=== PATIENT | male | born 1950 | race Caucasian/White ===

== ENCOUNTER 2018-01-29 11:49 | Inpatient (IN) ==
--- NOTE | 2018-01-29 14:10 | Internal Med History&Physical ---
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 Patient has 0/5 muscle strength in the left upper extremity. Left lower extremity shows 4/5 but patient shows left dorsiflexion deficit with a 3/5 muscle strength. CN 2-12 is intact. Patient was diagnosed with dysphagia upon presentation at [facility]. Patient will be reevaluated by our speech therapy due to lack of records of devious evaluation. Patient's blood pressure has been slightly elevated and we will aggressively maintain systolic less than 160. Qualifiers: CVA mechanism: unspecified Qualified Code(s): I63.9 - Cerebral infarction, unspecified (2) HTN (hypertension) Current visit: No Status: Chronic Patient has a history of hypertension prior to his admission. Patient systolic blood pressure has been elevated greater than 170 on 2 readings since his admission here. We will increase patient's lisinopril to 40 mg daily and will treat his blood pressure when necessary with clonidine. Qualifiers: Hypertension type: essential hypertension Qualified Code(s): I10 - Essential (primary) hypertension Internal Medicine - H&P: HPI Chief complaint: CVA with left hemiparesis Admitted From: Hospital to Hospital Transfer Plans for Post Hospital Care: Home History of present illness: Mr. Dover is a 67 year old male who was admitted from a [facility] where he was treated for an acute ischemic CVA resulting in left hemiparesis. MRI of the brain was performed which shows a right jose rafael infarct. Patient's recovery at [facility] was uneventful and patient was transferred to this facility for further rehabilitation due to his deconditioning and his logical deficits. Patient had a history of hypertension and hyperlipidemia prior to admission. On arrival patient was noted to have left upper extremity hemiplegia with muscle strength 0/5 and left lower extremity with a muscle strength of 4/5. Patient was noted to have left foot drop with a dorsiflexion of 3/5. Patient was diagnosed with dysphagia upon admission to [facility] but was evaluated by speech therapy at that time with documentation showing this problem has been resolved and patient was started on a regular diet. Patient also has significant history of tobacco abuse. Patient currently denies any discomforts or shortness of breath. Patient does endorse constipation stating that he has not had a bowel movement in approximately 4-5 days. Past Med Surg Social Fam HX - Past Medical History Medical history: CVA, hyperlipidemia, hypertension Psychiatric history: no psych history - Past Surgical History Surgical History: appendectomy Additional surgical history: nerve sx in stomach - Social History Smoking Status: Current every day smoker Smokeless Tobacco Status: No Alcohol use: rarely Drug use: none Internal Medicine - H&P: Meds Cholecalciferol (D-3) [Vitamin D] 1,000 unit PO DAILY 01/26/18 [History] [place]-3/Dha/Epa/Fish Oil [Fish Oil 1,000 mg Softgel] 1 cap PO DAILY 01/26/18 [ History] Simvastatin [Zocor] 40 mg PO HS 01/26/18 [History] Ubidecarenone [Coq10] 50 mg PO DAILY 01/26/18 [History] Clopidogrel [Plavix] 75 mg PO DAILY tablet 01/29/18 [Rx] Hydrochlorothiazide [Microzide] 12.5 mg PO DAILY #30 capsule 01/29/18 [Rx] Lisinopril [Zestril] 40 mg PO QDPC #30 tablet 01/29/18 [Rx] 3 Allergy/AdvReac Type Severity Reaction Status Date / Time No Known Allergies Allergy Verified 01/26/18 13:48 All Systems PM: A 10-system review of systems was performed and is negative for pertinent findings except as documented above in the HPI. - Constitutional Constitutional: no chills, no fever(s), no night sweats - EENT Eyes: no change in vision, no discharge, no pain, no photophobia Ears: no ear discharge, no ear pain, no tinnitus Nose, mouth and throat: no dysphagia, no nasal discharge, no neck pain, no sore throat - Cardiovascular Cardiovascular ROS IM: as per HPI, no chest pain, no diaphoresis, no dyspnea, no lightheadedness, no palpitations, no syncope - Respiratory Respiratory: as per HPI, no cough, no dyspnea, no wheezing, no excessive phlegm production - Gastrointestinal Gastrointestinal: as per HPI, no abdominal pain, no diarrhea, no hematemesis, no hematochezia, no melena, no nausea, no vomiting - Musculoskeletal Musculoskeletal ROS IM: as per HPI, no numbness, no tingling - Integumentary Integumentary IM: no rash, no unusual bruising - Neurological Neurological ROS: as per HPI, no confusion, no convulsions, no focal weakness, no numbness, no tingling, no tremor(s) - Hematologic/Lymphatic Hematologic/Lymphatic: no easy bruising - Constitutional Vitals: Temp Pulse Resp BP Pulse Ox 97.7 F 64 16 176/79 98 01/29/18 12:07 01/29/18 12:07 01/29/18 12:07 01/29/18 12:07 01/29/18 12:07 General appearance: Present: A&O X 3, no acute distress - Head Head exam: Present: atraumatic, normocephalic - Eye Eye exam: Present: PERRL, conjuntiva pink, sclera anicteric Pupils: Present: PERRL - Neck Neck exam general surgery: Present: supple, trachea midline. Absent: lymphadenopathy - Respiratory Respiratory exam: Present: CTAB. Absent: accessory muscle use, rales, rhonchi, wheezes - Cardiovascular Cardiovascular exam: Present: RRR, +S1, +S2. Absent: diastolic murmur, gallop, rubs, systolic murmur - GI/Abdominal GI/Abdominal exam: Present: normal bowel sounds, soft, no peritoneal signs. Absent: distended, tenderness - Extremities Exam Extremities exam: Present: warm, radial pulses palpable and symmetrical. Absent : calf tenderness, cyanotic, pedal edema - Neurological Exam Neurological exam: Present: CN II-XII intact, oriented X3. Absent: pronater drift, facial droop, speech deficit Additional comments: Patient has LUE hemiplegia with MS 0/5. LLE with MS 4/5 , dorsiflexion at 3/5. RE with MS 5/5. No facial droop and tongue is midline. Speech is clear - Skin Skin exam: Present: dry, intact
[2018-01-29] MEDS ORDERED: Lisinopril 20 MG TABLET PO STA (14:24)
[2018-01-29] MEDS: cloNIDine HCl 0.1 MG TABLET PO PRN ×3 (14:29→23:59)
[2018-01-29] MEDS ORDERED: MOM Conc 10 ML UD.LIQ PO PRN (15:03)
[2018-01-29] MEDS ORDERED: hydrALAZINE 25 MG TABLET PO PRN (20:17)
[2018-01-29] MEDS: Sennosides 8.6 MG TABLET PO SCH (20:27)
[2018-01-29] MEDS: Acetaminophen 325 MG TABLET PO PRN (20:28)
[2018-01-30] MEDS: *HR* Enoxaparin 40 MG/0.4 ML SYRINGE SQ SCH (05:39)
[2018-01-30 06:28] LABS: Basophils # 0.1 K/mcL (0.0-0.2); Basophils % 1.1 %; Eosinophils # 0.4 K/mcL (0.0-0.6); Eosinophils % 5.2 %; Hemoglobin 11.6 g/dL (12.9-16.9); INR 1.1; Immature Granulocytes % 0.3 % (0-4); Lymphocytes # 3.4 K/mcL (0.6-4.6); Lymphocytes % 42.7 %; Mean Corpuscular HGB Conc 35.2 g/dL (31.6-35.5); Mean Corpuscular Hemoglobin 33.4 pg (28.0-33.3); Mean Corpuscular Volume 95.1 fL (83.0-100.0); Mean Platelet Volume 10.2 fL (9.4-12.4); Monocytes # 0.5 K/mcL (0.0-1.3); Monocytes % 6.1 %; Neutrophils # 3.5 K/mcL (1.6-8.9); Platelet Count 186 K/mcL (140-400); Prothrombin Time 12.2 Seconds (9.4-12.1); Red Blood Count 3.47 M/mcL (4.19-5.50); Red Cell Distribution Width 14.3 % (11.5-14.5); Segmented Neutrophils % 44.6 %
[2018-01-30 06:30] LABS: Activated Partial Thrombo Time 30.8 Seconds (26.0-36.0)
[2018-01-30 06:43] LABS: BUN/Creatinine Ratio 15 (6-26); Blood Urea Nitrogen 17 mg/dL (8-23); Calcium 9.1 mg/dL (8.6-10.3); Carbon Dioxide 26 mEq/L (23-29); Chloride 101 mEq/L (98-107); Glucose 111 mg/dL (70-105); Osmolality,Calculated 276 (280-300); Potassium 3.4 mEq/L (3.5-5.1); Sodium 132 mEq/L (136-145); eGFR For Non-African Americans > 60 (> 60)
[2018-01-30 06:53] LABS: Thyroid Stimulating Hormone 4.396 mcIU/mL (0.340-5.600)
[2018-01-30] MEDS: Sennosides 8.6 MG TABLET PO SCH ×2 (08:30→21:13)
[2018-01-30] MEDS: Cholecalciferol (D-3) 1,000 UNIT TABLET PO SCH (08:30)
[2018-01-30] MEDS: Lisinopril 20 MG TABLET PO SCH (08:30)
--- NOTE | 2018-01-30 12:50 | Internal Med Progress Note ---
Date of Encounter: 01/30/18 Time of Encounter: 12:10 - Assessment and plan (1) Stroke Current Visit: No Status: Acute Assessment and plan: Right pontine infarction as noted previously. He will continue with therapies. He is doing well, so far. 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 Qualifiers: CVA mechanism: unspecified Qualified Code(s): I63.9 - Cerebral infarction, unspecified (2) HTN (hypertension) Current Visit: No Status: Chronic Assessment and plan: Patient's blood pressure seems to be doing transitionally better. Will follow. Qualifiers: Hypertension type: essential hypertension Qualified Code(s): I10 - Essential (primary) hypertension (3) HLD (hyperlipidemia) Current Visit: No Status: Chronic Assessment and plan: Clinically stable. We will continue home regimen and follow. Qualifiers: Hyperlipidemia type: unspecified Qualified Code(s): E78.5 - Hyperlipidemia , unspecified - Subjective Interval history: Patient still has moved his bowels. We discussed use of laxative, if he does not go. He feels that his stool softeners enough and I explained to him that that would not get his bowels moving. He agrees to try. Recreational therapy notes that patient cries and laughs inappropriately and quickly during conversation. I reviewed this with patient and he admits to both and states that he is not able to control this. This may be PBA. Here, Nuedexta is non-formulary. We will thus begin Celexa. Patient agrees to try this and I told him it may take a week or 2 before this "kicks in." Patient has no other complaints and notes no change in his physical abilities. Patient has no complaint of chest discomfort, dyspnea, orthopnea, palpitations, nausea or vomiting, constipation or diarrhea, other changes in bowel habits, difficulty with urination, rash or itching, or other new complaints, except as mentioned above. Review of systems is otherwise negative. I discussed management of her care with nursing staff. - Constitutional Vitals: Temp Pulse Resp BP Pulse Ox 97.7 F 78 16 155/78 98 01/30/18 11:13 01/30/18 11:13 01/30/18 11:13 01/30/18 11:13 01/30/18 11:13 General appearance: Present: no acute distress Exam: Examination: (Except as mentioned above): General: In no apparent distress. Alert and oriented 3. Nondiaphoretic. Head: Atraumatic and normocephalic. Respiratory: No use of accessory muscles. Lungs are clear throughout. Normal airflow. Cardiovascular: Regular rate and rhythm without murmur appreciated. Abdomen: Bowel sounds are normal. No hepatosplenomegaly mass or tenderness appreciated. Extremities: No cyanosis clubbing or edema. He is still weak as before on the left side. Minimal left facial droop. Skin: Warm and non-diaphoretic with no new lesions noted. Internal Medicine: Result - Labs CBC & Chem 7: 01/30/18 05:30 01/30/18 05:30 Labs: Short CBC 01/30/18 Range/Units 05:30 WBC 7.9 (4.3-11.1) K/mcL Hgb 11.6 L (12.9-16.9) g/dL Hct 33.0 L (37.5-50.1) % Plt Count 186 (140-400) K/mcL Neutrophils # 3.5 (1.6-8.9) K/mcL BMP 01/30/18 05:30 Sodium 132 L Potassium 3.4 L Chloride 101 Carbon Dioxide 26 BUN 17 Creatinine 1.10 Glucose 111 H Calcium 9.1 - ABG Interpretation ABG results: PT/INR, D-dimer PT 12.2 Seconds (9.4-12.1) H 01/30/18 05:30 Consult Discharge Plan - Plan Referrals: Kenya Francis CNP [Primary Care Provider] - Venancio Mcclendon MD [Family Provider] -
[2018-01-30] MEDS: cloNIDine HCl 0.1 MG TABLET PO PRN (21:13)
[2018-01-31] MEDS: *HR* Enoxaparin 40 MG/0.4 ML SYRINGE SQ SCH (06:05)
[2018-01-31] MEDS: Cholecalciferol (D-3) 1,000 UNIT TABLET PO SCH (08:13)
[2018-01-31] MEDS: Sennosides 8.6 MG TABLET PO SCH ×2 (08:13→20:19)
[2018-01-31] MEDS: Lisinopril 20 MG TABLET PO SCH (08:13)
--- NOTE | 2018-01-31 12:24 | Internal Med Progress Note ---
Date of Encounter: 01/31/18 Time of Encounter: 12:21 - Assessment and plan (1) Stroke Current Visit: Yes Status: Acute Assessment and plan: No acute neurological changes noted on exam. Patient continues to show left arm is flaccid and moderate paresis to the left lower extremity. Patient states that therapy has been going well and will continue with therapy. Will continue with current plan of care and medications Qualifiers: CVA mechanism: unspecified Qualified Code(s): I63.9 - Cerebral infarction, unspecified (2) HTN (hypertension) Current Visit: No Status: Chronic Assessment and plan: Patient's blood pressure continues to have occasional elevated systolic pressures. We will continue with when necessary clonidine and continue to monitor. Qualifiers: Hypertension type: essential hypertension Qualified Code(s): I10 - Essential (primary) hypertension - Time Spent With Patient less than 15 minutes - Subjective Interval history: Patient appears relaxed and currently denies any discomforts or shortness of breath. Patient denies any acute neurological changes. Patient states that he no longer is constipated and has had a regular BMs. - Constitutional Vitals: Temp Pulse Resp BP Pulse Ox 98.1 F 60 16 135/64 99 01/31/18 07:11 01/31/18 07:11 01/31/18 07:11 01/31/18 07:11 01/31/18 07:11 General appearance: Present: A&O X 3, no acute distress - Head Head exam: Present: atraumatic, normocephalic - Eye Eye exam: Present: PERRL, conjuntiva pink, sclera anicteric Pupils: Present: PERRL - Neck Neck exam general surgery: Present: supple, trachea midline. Absent: lymphadenopathy - Respiratory Respiratory exam: Present: CTAB. Absent: accessory muscle use, rales, rhonchi, wheezes - Cardiovascular Cardiovascular exam: Present: RRR, +S1, +S2. Absent: diastolic murmur, gallop, rubs, systolic murmur - GI/Abdominal GI/Abdominal exam: Present: normal bowel sounds, soft, no peritoneal signs. Absent: distended, tenderness - Extremities Exam Extremities exam: Present: warm, radial pulses palpable and symmetrical. Absent : calf tenderness, cyanotic, pedal edema - Neurological Exam Neurological exam: Present: CN II-XII intact, oriented X3. Absent: pronater drift, facial droop, speech deficit Additional comments: Patient continues to have LUE that is flaccid with MS 0/5 and LLE 4/5, but his left dorsiflexion is 3/5. RE is 5/5 MS. - Skin Skin exam: Present: dry, intact Internal Medicine: Result - Labs CBC & Chem 7: 01/30/18 05:30 01/30/18 05:30 - ABG Interpretation ABG results: PT/INR, D-dimer PT 12.2 Seconds (9.4-12.1) H 01/30/18 05:30 Consult Discharge Plan - Plan Referrals: Venancio Mcclendon MD [Family Provider] - Kenya Francis CNP [Primary Care Provider] -
[2018-01-31] MEDS: cloNIDine HCl 0.1 MG TABLET PO PRN (19:00)
[2018-02-01] MEDS: *HR* Enoxaparin 40 MG/0.4 ML SYRINGE SQ SCH (05:40)
[2018-02-01 05:48] LABS: Hematocrit 34.8 % (37.5-50.1); Hemoglobin 12.1 g/dL (12.9-16.9); Mean Corpuscular HGB Conc 34.8 g/dL (31.6-35.5); Mean Corpuscular Hemoglobin 33.3 pg (28.0-33.3); Mean Corpuscular Volume 95.9 fL (83.0-100.0); Platelet Count 186 K/mcL (140-400); Red Blood Count 3.63 M/mcL (4.19-5.50); Red Cell Distribution Width 14.4 % (11.5-14.5)
[2018-02-01 06:07] LABS: BUN/Creatinine Ratio 17 (6-26); Blood Urea Nitrogen 18 mg/dL (8-23); Calcium 9.1 mg/dL (8.6-10.3); Carbon Dioxide 28 mEq/L (23-29); Chloride 98 mEq/L (98-107); Glucose 93 mg/dL (70-105); Magnesium 2.1 mg/dL (1.6-2.6); Osmolality,Calculated 274 (280-300); Potassium 4.6 mEq/L (3.5-5.1); Sodium 131 mEq/L (136-145); eGFR For Non-African Americans > 60 (> 60)
[2018-02-01] MEDS: Lisinopril 20 MG TABLET PO SCH (08:15)
[2018-02-01] MEDS: Magnesium Oxide 400 MG TABLET PO SCH (08:16)
[2018-02-01] MEDS: Sennosides 8.6 MG TABLET PO SCH ×2 (08:16→20:27)
[2018-02-01] MEDS: Cholecalciferol (D-3) 1,000 UNIT TABLET PO SCH (08:16)
--- NOTE | 2018-02-01 11:37 | Internal Med Progress Note ---
Date of Encounter: 02/01/18 Time of Encounter: 11:34 - Assessment and plan (1) Stroke Current Visit: Yes Status: Acute Assessment and plan: Patient is a ischemic CVA of the jose rafael. Patient has showed improvement of his exam since yesterday with him now having gross motor movement of the left upper extremity which is at 3/5 MS and his left lower extremity remains at 4/5 MS. Right extremities remain at 5/5 MS. Patient states that therapy has been going well and will continue with therapy. Will continue with current plan of care and medications Qualifiers: CVA mechanism: unspecified Qualified Code(s): I63.9 - Cerebral infarction, unspecified (2) HTN (hypertension) Current Visit: No Status: Chronic Assessment and plan: Patient's blood pressure continues to have occasional elevated systolic pressures. We will continue with when necessary clonidine and continue to monitor. Qualifiers: Hypertension type: essential hypertension Qualified Code(s): I10 - Essential (primary) hypertension - Time Spent With Patient less than 15 minutes - Subjective Interval history: Patient appears relaxed and currently denies any discomforts or shortness of breath. Patient states that he has noted some gross motor movement on his left arm since yesterday's exam. Patient states that he no longer is constipated and has had a regular BMs. - Constitutional Vitals: Temp Pulse Resp BP Pulse Ox 98.5 F 60 15 158/73 99 02/01/18 07:00 02/01/18 07:00 02/01/18 07:00 02/01/18 07:00 02/01/18 07:00 General appearance: Present: A&O X 3, no acute distress - Head Head exam: Present: atraumatic, normocephalic - Eye Eye exam: Present: PERRL, conjuntiva pink, sclera anicteric Pupils: Present: PERRL - Neck Neck exam general surgery: Present: supple, trachea midline. Absent: lymphadenopathy - Respiratory Respiratory exam: Present: CTAB. Absent: accessory muscle use, rales, rhonchi, wheezes - Cardiovascular Cardiovascular exam: Present: RRR, +S1, +S2. Absent: diastolic murmur, gallop, rubs, systolic murmur - GI/Abdominal GI/Abdominal exam: Present: normal bowel sounds, soft, no peritoneal signs. Absent: distended, tenderness - Extremities Exam Extremities exam: Present: warm, radial pulses palpable and symmetrical. Absent : calf tenderness, cyanotic, pedal edema - Neurological Exam Neurological exam: Present: CN II-XII intact, oriented X3. Absent: pronater drift, facial droop, speech deficit Additional comments: Left hemiparesis with LUE at 3/5 and LLE 4/5. RE 5/5. No other focal deficits noted on exam - Skin Skin exam: Present: dry, intact Internal Medicine: Result - Labs CBC & Chem 7: 02/01/18 05:15 02/01/18 05:15 Labs: Short CBC 02/01/18 Range/Units 05:15 WBC 7.8 (4.3-11.1) K/mcL Hgb 12.1 L (12.9-16.9) g/dL Hct 34.8 L (37.5-50.1) % Plt Count 186 (140-400) K/mcL BMP 02/01/18 05:15 Sodium 131 L Potassium 4.6 Chloride 98 Carbon Dioxide 28 BUN 18 Creatinine 1.03 Glucose 93 Calcium 9.1 - ABG Interpretation ABG results: PT/INR, D-dimer PT 12.2 Seconds (9.4-12.1) H 01/30/18 05:30 Consult Discharge Plan - Plan Referrals: Venancio Mcclendon MD [Family Provider] - Kenya Francis CNP [Primary Care Provider] -
[2018-02-01] MEDS: cloNIDine HCl 0.1 MG TABLET PO PRN (20:28)
[2018-02-02] MEDS: *HR* Enoxaparin 40 MG/0.4 ML SYRINGE SQ SCH (05:26)
[2018-02-02] MEDS: Cholecalciferol (D-3) 1,000 UNIT TABLET PO SCH (09:04)
[2018-02-02] MEDS: Sennosides 8.6 MG TABLET PO SCH ×2 (09:04→19:48)
[2018-02-02] MEDS: Lisinopril 20 MG TABLET PO SCH (09:04)
[2018-02-02] MEDS: Magnesium Oxide 400 MG TABLET PO SCH (09:04)
--- NOTE | 2018-02-02 12:18 | Internal Med Progress Note ---
Date of Encounter: 02/02/18 Time of Encounter: 12:16 - Assessment and plan (1) Stroke Current Visit: Yes Status: Acute Assessment and plan: No new neurological deficits at this time. Continue PT and OT. Will monitor progress. Follow up with neurologist as scheduled. Qualifiers: CVA mechanism: unspecified Qualified Code(s): I63.9 - Cerebral infarction, unspecified (2) HTN (hypertension) Current Visit: No Status: Chronic Assessment and plan: Controlled with current medication. Monitor blood pressure. Qualifiers: Hypertension type: essential hypertension Qualified Code(s): I10 - Essential (primary) hypertension - Time Spent With Patient less than 15 minutes - Subjective Interval history: Per dissipating well with therapy. Denies any complaints at this time. No new neurological deficits. Denies fever, chills, nausea vomiting or diarrhea. Maintaining appetite and hydration. States bowels last moved yesterday. - Constitutional Vitals: Temp Pulse Resp BP Pulse Ox 99.2 F 57 16 162/67 98 02/02/18 07:14 02/02/18 07:14 02/02/18 07:14 02/02/18 07:14 02/02/18 07:14 General appearance: Present: cooperative, A&O X 3, pleasant, no acute distress, answers questions appropriately - Head Head exam: Present: atraumatic, normocephalic - Eye Eye exam: Present: PERRL, conjuntiva pink, sclera anicteric Pupils: Present: PERRL - Neck Neck exam general surgery: Present: supple, trachea midline. Absent: lymphadenopathy - Respiratory Respiratory exam: Present: CTAB. Absent: accessory muscle use, rales, rhonchi, wheezes - Cardiovascular Cardiovascular exam: Present: RRR, +S1, +S2. Absent: diastolic murmur, gallop, rubs, systolic murmur - GI/Abdominal GI/Abdominal exam: Present: normal bowel sounds, soft, no peritoneal signs. Absent: distended, tenderness - Extremities Exam Extremities exam: Present: warm, radial pulses palpable and symmetrical. Absent : calf tenderness, cyanotic, pedal edema Additional comments: Left upper extremity strength 3\5, left lower extremity strength 4\5 - Neurological Exam Neurological exam: Present: CN II-XII intact, oriented X3, no focal deficits. Absent: pronater drift, facial droop, speech deficit - Skin Skin exam: Present: dry, intact Internal Medicine: Result - Labs CBC & Chem 7: 02/01/18 05:15 02/01/18 05:15 - ABG Interpretation ABG results: PT/INR, D-dimer PT 12.2 Seconds (9.4-12.1) H 01/30/18 05:30 Consult Discharge Plan - Plan Referrals: Venancio Mcclendon MD [Family Provider] - Kenya Francis CNP [Primary Care Provider] -
[2018-02-03] MEDS: *HR* Enoxaparin 40 MG/0.4 ML SYRINGE SQ SCH (05:15)
[2018-02-03] MEDS: Cholecalciferol (D-3) 1,000 UNIT TABLET PO SCH (08:01)
[2018-02-03] MEDS: cloNIDine HCl 0.1 MG TABLET PO PRN (08:01)
[2018-02-03] MEDS: Magnesium Oxide 400 MG TABLET PO SCH (08:01)
[2018-02-03] MEDS: Lisinopril 20 MG TABLET PO SCH (08:01)
[2018-02-03] MEDS: Sennosides 8.6 MG TABLET PO SCH ×2 (08:01→20:56)
--- NOTE | 2018-02-03 10:09 | Psychological Evaluation ---
Date of Encounter: 02/03/18 Time of Encounter: 09:30 History of Present Illness History of present illness: Mr. Dover is a 67 year old male who was admitted from an [facility] where he was treated for an acute ischemic CVA resulting in left hemiparesis. MRI of the brain was performed which shows a right jose rafael infarct. Patient's recovery at [facility] was uneventful and patient was transferred to this facility for further rehabilitation due to his deconditioning and his logical deficits. Patient had a history of hypertension and hyperlipidemia prior to admission. On arrival patient was noted to have left upper extremity hemiplegia with muscle strength 0/5 and left lower extremity with a muscle strength of 4/5. Patient was noted to have left foot drop with a dorsiflexion of 3/5. Patient was diagnosed with dysphagia upon admission to [facility] but was evaluated by speech therapy at that time with documentation showing this problem has been resolved and patient was started on a regular diet. Patient also has significant history of tobacco abuse. Past Medical History - Psychiatric History Psychiatric history: Reports: no psych history Home Medications and Allergies Cholecalciferol (D-3) [Vitamin D] 1,000 unit PO DAILY 01/26/18 [History] [place]-3/Dha/Epa/Fish Oil [Fish Oil 1,000 mg Softgel] 1 cap PO DAILY 01/26/18 [ History] Simvastatin [Zocor] 40 mg PO HS 01/26/18 [History] Ubidecarenone [Coq10] 50 mg PO DAILY 01/26/18 [History] Clopidogrel [Plavix] 75 mg PO DAILY tablet 01/29/18 [Rx] Hydrochlorothiazide [Microzide] 12.5 mg PO DAILY #30 capsule 01/29/18 [Rx] Lisinopril [Zestril] 40 mg PO QDPC #30 tablet 01/29/18 [Rx] 3 Allergy/AdvReac Type Severity Reaction Status Date / Time No Known Allergies Allergy Verified 01/26/18 13:48 Social History - Social History Social History: Pt. 48 years and has a son and grandson. Family supportive. Born and raised in [place]. High school diploma. Moved to [place] late 80's/early 90's for work. 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 Left work due to disability - "issues with balance, dizziness, and involuntary eye movements" stated better now because learned to compensate. 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 - Tobacco Use Smoking Status: Former smoker - Alcohol Use Alcohol Use: occasionally - Drug Use Drug Use: none Cognitive/Emotional Assessment - Cognitive Ability Abstract Thinking Ability: No Deficits Noted Attention Span Ability: Capable of Focused Attention, Capable of Sustained Attention Language Function Ability: No Deficits Noted Level of Alertness: Alert Orientation: Person, Place, Time, Name, Age, Date of , Day of Month, Day of Week Ability to Follow Directions: Good Speech Pattern: Normal rate Thought Process: Intact, Logical Calculations: Able to add simple combinations Additional Findings: Pt able to recall 3/3 words immediately and after 5 min; 6 digits forward and 4 digits backward; knew pres, previous pres and gov; unable to subtract 14.45 from 20. - Emotional Status Mood Description: Euthymic/stable Affect Description: Euthymic/stable Coping Ability: Verbalizes positive coping skills Additional Findings: States mood as "OK". No history of psychological issues; denies SI/HI; sleep on and off. Assessment & Plan - Diagnosis (1) Adjustment disorder with depressed mood - Prognosis Prognosis: Good - Treatment Plan Treatment Plan/Recommendations: No outpatient counseling warranted mood has stabilized. Feels hopeful with current progress in-rehab.and support of family. Procedures - Intervention Interventions: Supportive Counseling - Modality Modality: Psychotherapy 30 minutes - Participants Therapy Participant: Patient - Session Time Session Start Time: 09:30 Session Stop Time: 10:00
--- NOTE | 2018-02-03 11:27 | Internal Med Progress Note ---
Date of Encounter: 02/03/18 Time of Encounter: 11:25 - Assessment and plan (1) Stroke Current Visit: Yes Status: Acute Assessment and plan: No new neurological deficits at this time. Continue PT and OT. Will monitor progress. Follow up with neurologist as scheduled. Qualifiers: CVA mechanism: unspecified Qualified Code(s): I63.9 - Cerebral infarction, unspecified (2) HTN (hypertension) Current Visit: No Status: Chronic Assessment and plan: Controlled with current medication. Monitor blood pressure. Qualifiers: Hypertension type: essential hypertension Qualified Code(s): I10 - Essential (primary) hypertension - Time Spent With Patient less than 15 minutes - Subjective Interval history: participating well with therapy. ambulating with kedra walker in hallway with therapy. Denies any complaints at this time. No new neurological deficits. Denies fever, chills, nausea vomiting or diarrhea. Maintaining appetite and hydration. States bowels last moved yesterday. - Constitutional Vitals: Temp Pulse Resp BP Pulse Ox 98.1 F 67 16 115/75 97 02/03/18 07:21 02/03/18 07:21 02/03/18 07:21 02/03/18 10:02 02/03/18 07:21 General appearance: Present: cooperative, A&O X 3, pleasant, no acute distress, answers questions appropriately - Head Head exam: Present: atraumatic, normocephalic - Eye Eye exam: Present: PERRL, conjuntiva pink, sclera anicteric Pupils: Present: PERRL - Neck Neck exam general surgery: Present: supple, trachea midline. Absent: lymphadenopathy - Respiratory Respiratory exam: Present: CTAB. Absent: accessory muscle use, rales, rhonchi, wheezes - Cardiovascular Cardiovascular exam: Present: RRR, +S1, +S2. Absent: diastolic murmur, gallop, rubs, systolic murmur - GI/Abdominal GI/Abdominal exam: Present: normal bowel sounds, soft, no peritoneal signs. Absent: distended, tenderness - Extremities Exam Extremities exam: Present: warm, radial pulses palpable and symmetrical. Absent : calf tenderness, cyanotic, pedal edema Additional comments: LUE and LLE strength 4/5 - Neurological Exam Neurological exam: Present: CN II-XII intact, oriented X3, no focal deficits. Absent: pronater drift, facial droop, speech deficit - Skin Skin exam: Present: dry, intact Internal Medicine: Result - Labs CBC & Chem 7: 02/01/18 05:15 02/01/18 05:15 - ABG Interpretation ABG results: PT/INR, D-dimer PT 12.2 Seconds (9.4-12.1) H 01/30/18 05:30 Consult Discharge Plan - Plan Referrals: Venancio Mcclendon MD [Family Provider] - Kenya Francis CNP [Primary Care Provider] -
[2018-02-04] MEDS: *HR* Enoxaparin 40 MG/0.4 ML SYRINGE SQ SCH (05:29)
[2018-02-04] MEDS: Lisinopril 20 MG TABLET PO SCH (08:25)
[2018-02-04] MEDS: Magnesium Oxide 400 MG TABLET PO SCH (08:25)
[2018-02-04] MEDS: Cholecalciferol (D-3) 1,000 UNIT TABLET PO SCH (08:25)
[2018-02-04] MEDS: Sennosides 8.6 MG TABLET PO SCH ×2 (08:25→22:14)
--- NOTE | 2018-02-04 11:51 | Internal Med Progress Note ---
Date of Encounter: 02/04/18 Time of Encounter: 11:48 - Assessment and plan (1) Stroke Current Visit: Yes Status: Acute Assessment and plan: No new neurological deficits at this time. Continue PT and OT. Will monitor progress. Follow up with neurologist as scheduled. Qualifiers: CVA mechanism: unspecified Qualified Code(s): I63.9 - Cerebral infarction, unspecified (2) HTN (hypertension) Current Visit: No Status: Chronic Assessment and plan: Controlled with current medication. Monitor blood pressure. Qualifiers: Hypertension type: essential hypertension Qualified Code(s): I10 - Essential (primary) hypertension - Time Spent With Patient less than 15 minutes - Subjective Interval history: participating well with therapy. ambulating with kedar walker in hallway with therapy. Denies any complaints at this time. No new neurological deficits. Denies fever, chills, nausea vomiting or diarrhea. Maintaining appetite and hydration. States bowels last moved this am. states he slept well. - Constitutional Vitals: Temp Pulse Resp BP Pulse Ox 98.7 F 58 18 171/73 97 02/04/18 07:21 02/04/18 07:21 02/04/18 07:21 02/04/18 07:21 02/04/18 07:21 General appearance: Present: cooperative, A&O X 3, pleasant, no acute distress, answers questions appropriately - Head Head exam: Present: atraumatic, normocephalic - Eye Eye exam: Present: PERRL, conjuntiva pink, sclera anicteric Pupils: Present: PERRL - Neck Neck exam general surgery: Present: supple, trachea midline. Absent: lymphadenopathy - Respiratory Respiratory exam: Present: CTAB. Absent: accessory muscle use, rales, rhonchi, wheezes - Cardiovascular Cardiovascular exam: Present: RRR, +S1, +S2. Absent: diastolic murmur, gallop, rubs, systolic murmur - GI/Abdominal GI/Abdominal exam: Present: normal bowel sounds, soft, no peritoneal signs. Absent: distended, tenderness - Extremities Exam Extremities exam: Present: warm, radial pulses palpable and symmetrical. Absent : calf tenderness, cyanotic, pedal edema Additional comments: strength LUE 3/5, LLE 4/5 - Neurological Exam Neurological exam: Present: CN II-XII intact, oriented X3, no focal deficits. Absent: pronater drift, facial droop, speech deficit - Skin Skin exam: Present: dry, intact Internal Medicine: Result - Labs CBC & Chem 7: 02/01/18 05:15 02/01/18 05:15 - ABG Interpretation ABG results: PT/INR, D-dimer PT 12.2 Seconds (9.4-12.1) H 01/30/18 05:30 Consult Discharge Plan - Plan Referrals: Venancio Mcclendon MD [Family Provider] - Kenya Francis CNP [Primary Care Provider] -
[2018-02-04] MEDS: cloNIDine HCl 0.1 MG TABLET PO PRN ×2 (19:10→22:13)
[2018-02-05] MEDS ORDERED: amLODIPine 5 MG TABLET PO STA (00:27)
[2018-02-05] MEDS: *HR* Enoxaparin 40 MG/0.4 ML SYRINGE SQ SCH (06:31)
[2018-02-05] MEDS: Sennosides 8.6 MG TABLET PO SCH ×2 (09:44→20:48)
[2018-02-05] MEDS: Lisinopril 20 MG TABLET PO SCH (09:44)
[2018-02-05] MEDS: Cholecalciferol (D-3) 1,000 UNIT TABLET PO SCH (09:44)
[2018-02-05] MEDS: Magnesium Oxide 400 MG TABLET PO SCH (09:44)
[2018-02-05] MEDS: amLODIPine 5 MG TABLET PO SCH (09:45)
--- NOTE | 2018-02-05 11:37 | Internal Med Progress Note ---
Date of Encounter: 02/05/18 Time of Encounter: 11:33 - Assessment and plan (1) Stroke Current Visit: Yes Status: Acute Assessment and plan: Patient is a ischemic CVA of the jose rafael. Patient has showed improvement of his exam since last week for his gross motor movement of the left left extremities at 4/5 MS. Right extremities remain at 5/5 MS. Patient states that therapy has been going well and will continue with therapy. Will continue with current plan of care and medications Qualifiers: CVA mechanism: unspecified Qualified Code(s): I63.9 - Cerebral infarction, unspecified (2) HTN (hypertension) Current Visit: No Status: Chronic Assessment and plan: Patient's blood pressure continues to have occasional elevated systolic pressures. We will continue with when necessary clonidine and continue to monitor. Qualifiers: Hypertension type: essential hypertension Qualified Code(s): I10 - Essential (primary) hypertension - Time Spent With Patient less than 15 minutes - Subjective Interval history: Patient appears relaxed and currently denies any discomforts or shortness of breath. Patient states that he continues to regain gross motor movement on his left arm over the past week. Patient states that he no longer is constipated and has had a regular BMs. - Constitutional Vitals: Temp Pulse Resp BP Pulse Ox 97.5 F L 57 16 119/60 97 02/05/18 08:39 02/05/18 08:39 02/05/18 08:39 02/05/18 08:39 02/05/18 08:39 General appearance: Present: cooperative, A&O X 3, pleasant, no acute distress, answers questions appropriately - Head Head exam: Present: atraumatic, normocephalic - Eye Eye exam: Present: PERRL, conjuntiva pink, sclera anicteric Pupils: Present: PERRL - Neck Neck exam general surgery: Present: supple, trachea midline. Absent: lymphadenopathy - Respiratory Respiratory exam: Present: CTAB. Absent: accessory muscle use, rales, rhonchi, wheezes - Cardiovascular Cardiovascular exam: Present: RRR, +S1, +S2. Absent: diastolic murmur, gallop, rubs, systolic murmur - GI/Abdominal GI/Abdominal exam: Present: normal bowel sounds, soft, no peritoneal signs. Absent: distended, tenderness - Extremities Exam Extremities exam: Present: warm, radial pulses palpable and symmetrical. Absent : calf tenderness, cyanotic, pedal edema - Neurological Exam Neurological exam: Present: CN II-XII intact, oriented X3. Absent: pronater drift, facial droop, speech deficit Additional comments: Patient continues to show left hemiparesis with LE at 4/5, to include 4/5 dorsiflexion. RE 5/5. No decreased sensation. - Skin Skin exam: Present: dry, intact Internal Medicine: Result - Labs CBC & Chem 7: 02/01/18 05:15 02/01/18 05:15 - ABG Interpretation ABG results: PT/INR, D-dimer PT 12.2 Seconds (9.4-12.1) H 01/30/18 05:30 Consult Discharge Plan - Plan Referrals: Venancio Mcclendon MD [Family Provider] - Kenya Francis CNP [Primary Care Provider] -
[2018-02-05] MEDS: Acetaminophen 325 MG TABLET PO PRN (20:48)
[2018-02-06] MEDS: *HR* Enoxaparin 40 MG/0.4 ML SYRINGE SQ SCH (05:42)
[2018-02-06 06:02] LABS: Hematocrit 32.6 % (37.5-50.1); Hemoglobin 11.7 g/dL (12.9-16.9); Mean Corpuscular HGB Conc 35.9 g/dL (31.6-35.5); Mean Corpuscular Hemoglobin 34.1 pg (28.0-33.3); Mean Platelet Volume 9.4 fL (9.4-12.4); Platelet Count 193 K/mcL (140-400); Red Blood Count 3.43 M/mcL (4.19-5.50)
[2018-02-06 06:23] LABS: Alanine Aminotransferase 32 Units/L (7-52); Albumin 3.8 g/dL (3.5-5.7); Albumin/Globulin Ratio 2.1 (1.1-2.2); Alkaline Phosphatase 45 Units/L (34-104); Aspartate Amino Transferase 16 Units/L (13-39); BUN/Creatinine Ratio 24 (6-26); Bilirubin,Total 0.4 mg/dL (0.3-1.0); Blood Urea Nitrogen 27 mg/dL (8-23); Calcium 9.1 mg/dL (8.6-10.3); Carbon Dioxide 25 mEq/L (23-29); Chloride 98 mEq/L (98-107); Globulin 1.8 g/dL (2.4-3.5); Glucose 101 mg/dL (70-105); Osmolality,Calculated 275 (280-300); Potassium 4.4 mEq/L (3.5-5.1); Sodium 130 mEq/L (136-145); Total Protein 5.6 g/dL (6.4-8.9); eGFR For Non-African Americans > 60 (> 60)
[2018-02-06] MEDS: Cholecalciferol (D-3) 1,000 UNIT TABLET PO SCH (08:07)
[2018-02-06] MEDS: Sennosides 8.6 MG TABLET PO SCH ×2 (08:08→20:10)
[2018-02-06] MEDS: Magnesium Oxide 400 MG TABLET PO SCH (08:08)
[2018-02-06] MEDS: Lisinopril 20 MG TABLET PO SCH (08:08)
[2018-02-06] MEDS: amLODIPine 5 MG TABLET PO SCH (08:08)
--- NOTE | 2018-02-06 09:21 | Internal Med Progress Note ---
Date of Encounter: 02/06/18 Time of Encounter: 09:19 - Assessment and plan (1) Stroke Current Visit: Yes Status: Acute Assessment and plan: Acute stroke Right Hemisphere affecting left side no dysphasia noted able to speak well and is improving considerably Qualifiers: CVA mechanism: unspecified Qualified Code(s): I63.9 - Cerebral infarction, unspecified (2) HTN (hypertension) Current Visit: No Status: Chronic Assessment and plan: stable on Multiple meds continue to monitor Qualifiers: Hypertension type: essential hypertension Qualified Code(s): I10 - Essential (primary) hypertension (3) Hyponatremia Current Visit: Yes Status: Acute Assessment and plan: Noted to ahve decreased Sodium cause is not known Serum osmolarity is also low UA osmolarity ordered Most likely SIADH will try to restrict his fluid intake TSH Is within normal limits - Subjective Interval history: Cross Coverage , No acute issues today sitting in dinning chair enjoying his breakfast . no fever or chills no chest pain getting his rehab and is able to wlak with a support weakness on left side seems to be getting better and is s table - Constitutional Vitals: Temp Pulse Resp BP Pulse Ox 99.1 F 74 16 134/61 96 02/06/18 07:26 02/06/18 07:26 02/06/18 07:26 02/06/18 07:26 02/06/18 07:26 General appearance: Present: cooperative, A&O X 3, pleasant, no acute distress, answers questions appropriately - Head Head exam: Present: atraumatic - Eye Eye exam: Present: EOMI, PERRL Pupils: Present: PERRL Additional comments: no deviation of face noted - Neck Neck exam general surgery: Present: supple. Absent: tenderness, nuchal rigidity - Respiratory Respiratory exam: Present: CTAB. Absent: decreased breath sounds, prolonged expiratory phase, respiratory distress, rhonchi, stridor, wheezes, tachypnea - Cardiovascular Cardiovascular exam: Present: RRR, +S1, +S2. Absent: irregular rhythm, JVD, systolic murmur, tachycardia - GI/Abdominal GI/Abdominal exam: Present: normal bowel sounds, soft. Absent: diminished bowel sounds, distended, pulsatile mass, rebound, rigid, tenderness - Extremities Exam Extremities exam: Absent: pedal edema, tenderness, warm - Neurological Exam Neurological exam: Present: alert, oriented X3. Absent: facial droop, speech deficit Additional comments: left side upper and lower stregnth is decreased as compared to right side He is able to move his arm up and raise his foot left side No 7th nerve involvement noted no facial deviation no difficulty in swallowing speech is normal Internal Medicine: Result - Labs CBC & Chem 7: 02/06/18 05:40 02/06/18 05:40 Labs: Short CBC 02/06/18 Range/Units 05:40 WBC 8.2 (4.3-11.1) K/mcL Hgb 11.7 L (12.9-16.9) g/dL Hct 32.6 L (37.5-50.1) % Plt Count 193 (140-400) K/mcL BMP 02/06/18 05:40 Sodium 130 L Potassium 4.4 Chloride 98 Carbon Dioxide 25 BUN 27 H Creatinine 1.11 Glucose 101 Calcium 9.1 Liver Function 02/06/18 Range/Units 05:40 Total Bilirubin 0.4 (0.3-1.0) mg/dL AST 16 (13-39) Units/L ALT 32 (7-52) Units/L Alkaline Phosphatase 45 (34-104) Units/L Albumin 3.8 (3.5-5.7) g/dL - ABG Interpretation ABG results: PT/INR, D-dimer PT 12.2 Seconds (9.4-12.1) H 01/30/18 05:30 Consult Discharge Plan - Plan Referrals: Venancio Mcclendon MD [Family Provider] - Kenya Francis CNP [Primary Care Provider] -
[2018-02-06] MEDS: cloNIDine HCl 0.1 MG TABLET PO PRN (20:10)
[2018-02-07] MEDS: *HR* Enoxaparin 40 MG/0.4 ML SYRINGE SQ SCH (05:22)
[2018-02-07 05:30] LABS: BUN/Creatinine Ratio 25 (6-26); Blood Urea Nitrogen 27 mg/dL (8-23); Carbon Dioxide 25 mEq/L (23-29); Chloride 100 mEq/L (98-107); Glucose 125 mg/dL (70-105); Osmolality,Calculated 275 (280-300); Potassium 4.1 mEq/L (3.5-5.1); Sodium 129 mEq/L (136-145); eGFR For Non-African Americans > 60 (> 60)
[2018-02-07] MEDS: Sennosides 8.6 MG TABLET PO SCH ×2 (08:36→21:11)
[2018-02-07] MEDS: Magnesium Oxide 400 MG TABLET PO SCH (08:36)
[2018-02-07] MEDS: Cholecalciferol (D-3) 1,000 UNIT TABLET PO SCH (08:36)
[2018-02-07] MEDS: amLODIPine 5 MG TABLET PO SCH (08:36)
[2018-02-07] MEDS: Lisinopril 20 MG TABLET PO SCH (08:37)
--- NOTE | 2018-02-07 08:37 | Internal Med Progress Note ---
Date of Encounter: 02/07/18 Time of Encounter: 08:34 - Assessment and plan (1) Stroke Current Visit: Yes Status: Acute Assessment and plan: Stable and getting better continue present treatment and followup getting his PT Qualifiers: CVA mechanism: unspecified Qualified Code(s): I63.9 - Cerebral infarction, unspecified (2) HTN (hypertension) Current Visit: No Status: Chronic Assessment and plan: stable on multiple meds doing fine no side effects Qualifiers: Hypertension type: essential hypertension Qualified Code(s): I10 - Essential (primary) hypertension (3) Hyponatremia Current Visit: Yes Status: Acute Assessment and plan: Cause is not known He might have been drinking too much fluid . Will request for UA electrolytes . UA osmolarity pending . Will followup restrict fluid to 1000 cc for today and followup - Subjective Interval history: Cross Coverage , No acute issues today slept well no complains getting his PT no fever or chill no throwing up or any other issues - Constitutional Vitals: Temp Pulse Resp BP Pulse Ox 99.1 F 65 16 150/81 98 02/07/18 06:58 02/07/18 06:58 02/07/18 06:58 02/07/18 06:58 02/07/18 06:58 General appearance: Present: cooperative, A&O X 3, pleasant, no acute distress, answers questions appropriately - Head Head exam: Present: atraumatic - Eye Eye exam: Present: PERRL Pupils: Present: PERRL - Neck Neck exam general surgery: Present: supple. Absent: tenderness, nuchal rigidity - Respiratory Respiratory exam: Present: CTAB. Absent: chest wall tenderness, decreased breath sounds, respiratory distress, rhonchi, stridor, wheezes, tachypnea - Cardiovascular Cardiovascular exam: Present: RRR, +S1, +S2. Absent: diastolic murmur, irregular rhythm, JVD, systolic murmur - GI/Abdominal GI/Abdominal exam: Present: normal bowel sounds, soft. Absent: diminished bowel sounds, distended, firm, guarding, rebound, rigid - Extremities Exam Extremities exam: Absent: calf tenderness, mottling, pedal edema - Neurological Exam Neurological exam: Present: alert, CN II-XII intact, oriented X3. Absent: facial droop, speech deficit Additional comments: Weakness left side upper and lower as before. Slowly improving Internal Medicine: Result - Labs CBC & Chem 7: 02/06/18 05:40 02/07/18 05:02 Labs: BMP 02/07/18 05:02 Sodium 129 L Potassium 4.1 Chloride 100 Carbon Dioxide 25 BUN 27 H Creatinine 1.08 Glucose 125 H Calcium 9.0 - ABG Interpretation ABG results: PT/INR, D-dimer PT 12.2 Seconds (9.4-12.1) H 01/30/18 05:30 Consult Discharge Plan - Plan Referrals: Venancio Mcclendon MD [Family Provider] - Kenya Francis CNP [Primary Care Provider] -
[2018-02-07 18:32] LABS: Potassium,Urine 67.1 mEq/L; Sodium, Urine 77.3 mEq/L
[2018-02-08] MEDS: *HR* Enoxaparin 40 MG/0.4 ML SYRINGE SQ SCH (04:45)
[2018-02-08 06:11] LABS: Basophils # 0.1 K/mcL (0.0-0.2); Basophils % 0.7 %; Eosinophils # 0.3 K/mcL (0.0-0.6); Eosinophils % 2.9 %; Hematocrit 34.2 % (37.5-50.1); Hemoglobin 11.8 g/dL (12.9-16.9); Immature Granulocytes % 0.4 % (0-4); Lymphocytes # 3.1 K/mcL (0.6-4.6); Lymphocytes % 26.5 %; Mean Corpuscular HGB Conc 34.5 g/dL (31.6-35.5); Mean Corpuscular Hemoglobin 33.4 pg (28.0-33.3); Mean Corpuscular Volume 96.9 fL (83.0-100.0); Mean Platelet Volume 9.7 fL (9.4-12.4); Monocytes # 0.9 K/mcL (0.0-1.3); Monocytes % 7.5 %; Neutrophils # 7.3 K/mcL (1.6-8.9); Platelet Count 198 K/mcL (140-400); Red Blood Count 3.53 M/mcL (4.19-5.50); Red Cell Distribution Width 15.3 % (11.5-14.5)
[2018-02-08 06:28] LABS: BUN/Creatinine Ratio 20 (6-26); Blood Urea Nitrogen 23 mg/dL (8-23); Calcium 9.1 mg/dL (8.6-10.3); Carbon Dioxide 25 mEq/L (23-29); Chloride 100 mEq/L (98-107); Glucose 95 mg/dL (70-105); Osmolality,Calculated 273 (280-300); Potassium 4.4 mEq/L (3.5-5.1); Sodium 130 mEq/L (136-145); eGFR For Non-African Americans > 60 (> 60)
[2018-02-08] MEDS: amLODIPine 5 MG TABLET PO SCH (08:40)
[2018-02-08] MEDS: Magnesium Oxide 400 MG TABLET PO SCH (08:40)
[2018-02-08] MEDS: Sennosides 8.6 MG TABLET PO SCH ×2 (08:40→19:52)
[2018-02-08] MEDS: Cholecalciferol (D-3) 1,000 UNIT TABLET PO SCH (08:40)
[2018-02-08] MEDS: Lisinopril 20 MG TABLET PO SCH (08:40)
[2018-02-08] MEDS: Acetaminophen 325 MG TABLET PO PRN (08:47)
--- NOTE | 2018-02-08 11:32 | Internal Med Progress Note ---
Date of Encounter: 02/08/18 Time of Encounter: 11:30 - Assessment and plan (1) Stroke Current Visit: Yes Status: Acute Assessment and plan: No new neurological deficits at this time. Continue PT and OT. Will monitor progress. Follow up with neurologist as scheduled. Qualifiers: CVA mechanism: unspecified Qualified Code(s): I63.9 - Cerebral infarction, unspecified (2) HTN (hypertension) Current Visit: Yes Status: Chronic Assessment and plan: Controlled with current medication. Monitor blood pressure. Qualifiers: Hypertension type: essential hypertension Qualified Code(s): I10 - Essential (primary) hypertension (3) Left shoulder pain Current Visit: Yes Status: Acute Assessment and plan: lidoderm patch ordered. will follow for effectiveness and collaborate with therapy. Qualifiers: Chronicity: acute Qualified Code(s): M25.512 - Pain in left shoulder - Time Spent With Patient less than 15 minutes - Subjective Interval history: participating well with therapy. ambulating with kedar walker in hallway with therapy. No new neurological deficits. c/o Left shoulder pain. Denies fever, chills, nausea vomiting or diarrhea. Maintaining appetite and hydration. States bowels last moved this am. states he slept well. - Constitutional Vitals: Temp Pulse Resp BP Pulse Ox 98.6 F 69 16 157/72 96 02/08/18 07:34 02/08/18 07:34 02/08/18 07:34 02/08/18 07:34 02/08/18 07:34 General appearance: Present: cooperative, A&O X 3, pleasant, no acute distress, answers questions appropriately - Head Head exam: Present: atraumatic, normocephalic - Eye Eye exam: Present: PERRL, conjuntiva pink, sclera anicteric Pupils: Present: PERRL - Neck Neck exam general surgery: Present: supple, trachea midline. Absent: lymphadenopathy - Respiratory Respiratory exam: Present: CTAB. Absent: accessory muscle use, rales, rhonchi, wheezes - Cardiovascular Cardiovascular exam: Present: RRR, +S1, +S2. Absent: diastolic murmur, gallop, rubs, systolic murmur - GI/Abdominal GI/Abdominal exam: Present: normal bowel sounds, soft, no peritoneal signs. Absent: distended, tenderness - Extremities Exam Extremities exam: Present: warm, radial pulses palpable and symmetrical. Absent : calf tenderness, cyanotic, pedal edema Additional comments: strength LLE 4/5 and LUE 3/5 - Neurological Exam Neurological exam: Present: CN II-XII intact, oriented X3, no focal deficits. Absent: pronater drift, facial droop, speech deficit - Skin Skin exam: Present: dry, intact Internal Medicine: Result - Labs CBC & Chem 7: 02/08/18 05:35 02/08/18 05:35 Labs: Short CBC 02/08/18 Range/Units 05:35 WBC 11.8 H (4.3-11.1) K/mcL Hgb 11.8 L (12.9-16.9) g/dL Hct 34.2 L (37.5-50.1) % Plt Count 198 (140-400) K/mcL Neutrophils # 7.3 (1.6-8.9) K/mcL BMP 02/08/18 05:35 Sodium 130 L Potassium 4.4 Chloride 100 Carbon Dioxide 25 BUN 23 Creatinine 1.13 Glucose 95 Calcium 9.1 - ABG Interpretation ABG results: PT/INR, D-dimer PT 12.2 Seconds (9.4-12.1) H 01/30/18 05:30 Consult Discharge Plan - Plan Referrals: Venancio Mcclendon MD [Family Provider] - Kenya Francis CNP [Primary Care Provider] -
[2018-02-09] MEDS: *HR* Enoxaparin 40 MG/0.4 ML SYRINGE SQ SCH (05:54)
[2018-02-09] MEDS: amLODIPine 5 MG TABLET PO SCH (08:21)
[2018-02-09] MEDS: Lisinopril 20 MG TABLET PO SCH (08:21)
[2018-02-09] MEDS: Cholecalciferol (D-3) 1,000 UNIT TABLET PO SCH (08:21)
[2018-02-09] MEDS: Magnesium Oxide 400 MG TABLET PO SCH (08:22)
[2018-02-09] MEDS: Sennosides 8.6 MG TABLET PO SCH ×2 (08:22→20:54)
--- NOTE | 2018-02-09 11:12 | Internal Med Progress Note ---
Date of Encounter: 02/09/18 Time of Encounter: 11:10 - Assessment and plan (1) Stroke Current Visit: Yes Status: Acute Assessment and plan: No new neurological deficits at this time. Continue PT and OT. Will monitor progress. Follow up with neurologist as scheduled. Qualifiers: CVA mechanism: unspecified Qualified Code(s): I63.9 - Cerebral infarction, unspecified (2) HTN (hypertension) Current Visit: Yes Status: Chronic Assessment and plan: Controlled with current medication. Monitor blood pressure. Qualifiers: Hypertension type: essential hypertension Qualified Code(s): I10 - Essential (primary) hypertension (3) Left shoulder pain Current Visit: Yes Status: Acute Assessment and plan: lidoderm patch ordered. will follow for effectiveness and collaborate with therapy. Qualifiers: Chronicity: acute Qualified Code(s): M25.512 - Pain in left shoulder - Subjective Interval history: participating well with therapy. ambulating with kedar walker in hallway with therapy, tried a standard walker with PT, was able to have enough left hand grasp to control. No new neurological deficits. c/o Left shoulder pain, lidoderm patch on. Denies fever, chills, nausea vomiting or diarrhea. Maintaining appetite and hydration. States bowels last moved this am. states he slept well. - Constitutional Vitals: Temp Pulse Resp BP Pulse Ox 98.2 F 70 17 146/65 96 02/09/18 07:27 02/09/18 07:27 02/09/18 07:27 02/09/18 07:27 02/09/18 07:27 General appearance: Present: cooperative, A&O X 3, pleasant, no acute distress, answers questions appropriately - Head Head exam: Present: atraumatic, normocephalic - Eye Eye exam: Present: PERRL, conjuntiva pink, sclera anicteric Pupils: Present: PERRL - Neck Neck exam general surgery: Present: supple, trachea midline. Absent: lymphadenopathy - Respiratory Respiratory exam: Present: CTAB. Absent: accessory muscle use, rales, rhonchi, wheezes - Cardiovascular Cardiovascular exam: Present: RRR, +S1, +S2. Absent: diastolic murmur, gallop, rubs, systolic murmur - GI/Abdominal GI/Abdominal exam: Present: normal bowel sounds, soft, no peritoneal signs. Absent: distended, tenderness - Extremities Exam Extremities exam: Present: warm, radial pulses palpable and symmetrical. Absent : calf tenderness, cyanotic, pedal edema Additional comments: LLE 4/5, LUE 3/5 - Neurological Exam Neurological exam: Present: CN II-XII intact, oriented X3, no focal deficits. Absent: pronater drift, facial droop, speech deficit - Skin Skin exam: Present: dry, intact Internal Medicine: Result - Labs CBC & Chem 7: 02/08/18 05:35 02/08/18 05:35 - ABG Interpretation ABG results: PT/INR, D-dimer PT 12.2 Seconds (9.4-12.1) H 01/30/18 05:30 Consult Discharge Plan - Plan Referrals: Venancio Mcclendon MD [Family Provider] - Kenya Francis CNP [Primary Care Provider] -
[2018-02-09] MEDS: cloNIDine HCl 0.1 MG TABLET PO PRN (20:57)
[2018-02-10] MEDS: *HR* Enoxaparin 40 MG/0.4 ML SYRINGE SQ SCH (06:03)
[2018-02-10] MEDS: Magnesium Oxide 400 MG TABLET PO SCH (07:50)
[2018-02-10] MEDS: Sennosides 8.6 MG TABLET PO SCH ×2 (07:50→19:56)
[2018-02-10] MEDS: amLODIPine 5 MG TABLET PO SCH (07:50)
[2018-02-10] MEDS: Lisinopril 20 MG TABLET PO SCH (07:50)
[2018-02-10] MEDS: Cholecalciferol (D-3) 1,000 UNIT TABLET PO SCH (07:50)
--- NOTE | 2018-02-10 10:02 | Internal Med Progress Note ---
Date of Encounter: 02/10/18 Time of Encounter: 10:00 - Assessment and plan (1) Stroke Current Visit: Yes Status: Acute Assessment and plan: Patient is a ischemic CVA of the jose rafael. Patient continues to show improvement of his exam since last week for his gross motor movement of the left left extremities at 4/5 MS. Left dorsiflexion remains at 3/5. Right extremities remain at 5/5 MS. Patient states that therapy has been going well and will continue with therapy. Will continue with current plan of care and medications Qualifiers: CVA mechanism: unspecified Qualified Code(s): I63.9 - Cerebral infarction, unspecified (2) HTN (hypertension) Current Visit: Yes Status: Chronic Assessment and plan: Patient's blood pressure continues to have occasional elevated systolic pressures, although is better controlled over the last several days. We will continue with when necessary clonidine and continue to monitor. Qualifiers: Hypertension type: essential hypertension Qualified Code(s): I10 - Essential (primary) hypertension - Time Spent With Patient less than 15 minutes - Subjective Interval history: Patient appears relaxed and currently denies any discomforts or shortness of breath. Patient states that he continues to regain gross motor movement on his left arm over the past week. States that his left dorsiflexion has not responded as fast. - Constitutional Vitals: Temp Pulse Resp BP Pulse Ox 98.1 F 67 16 123/62 96 02/10/18 07:26 02/10/18 07:26 02/10/18 07:26 02/10/18 07:26 02/10/18 07:26 General appearance: Present: cooperative, A&O X 3, pleasant, no acute distress, answers questions appropriately - Head Head exam: Present: atraumatic, normocephalic - Eye Eye exam: Present: PERRL, conjuntiva pink, sclera anicteric Pupils: Present: PERRL - Neck Neck exam general surgery: Present: supple, trachea midline. Absent: lymphadenopathy - Respiratory Respiratory exam: Present: CTAB. Absent: accessory muscle use, rales, rhonchi, wheezes - Cardiovascular Cardiovascular exam: Present: RRR, +S1, +S2. Absent: diastolic murmur, gallop, rubs, systolic murmur - GI/Abdominal GI/Abdominal exam: Present: normal bowel sounds, soft, no peritoneal signs. Absent: distended, tenderness - Extremities Exam Extremities exam: Present: warm, radial pulses palpable and symmetrical. Absent : calf tenderness, cyanotic, pedal edema - Neurological Exam Neurological exam: Present: CN II-XII intact, oriented X3. Absent: pronater drift, facial droop, speech deficit Additional comments: Speech is clear. No droop. LE continue with 4/5 MS, and left dorsiflexion is at 3/5. RE 5/5. - Skin Skin exam: Present: dry, intact Internal Medicine: Result - Labs CBC & Chem 7: 02/08/18 05:35 02/08/18 05:35 - ABG Interpretation ABG results: PT/INR, D-dimer PT 12.2 Seconds (9.4-12.1) H 01/30/18 05:30 Consult Discharge Plan - Plan Referrals: Venancio Mcclendon MD [Family Provider] - Kenya Francis CNP [Primary Care Provider] -
[2018-02-11] MEDS: *HR* Enoxaparin 40 MG/0.4 ML SYRINGE SQ SCH (04:27)
[2018-02-11] MEDS: Magnesium Oxide 400 MG TABLET PO SCH (08:14)
[2018-02-11] MEDS: Lisinopril 20 MG TABLET PO SCH (08:14)
[2018-02-11] MEDS: Cholecalciferol (D-3) 1,000 UNIT TABLET PO SCH (08:15)
[2018-02-11] MEDS: amLODIPine 5 MG TABLET PO SCH (08:15)
[2018-02-11] MEDS: Sennosides 8.6 MG TABLET PO SCH ×2 (08:15→21:09)
--- NOTE | 2018-02-11 11:05 | Internal Med Progress Note ---
Date of Encounter: 02/11/18 Time of Encounter: 11:03 - Assessment and plan (1) Stroke Current Visit: Yes Status: Acute Assessment and plan: Patient is a ischemic CVA of the jose rafael. Patient continues to show improvement of his exam since last week for his gross motor movement of the left left extremities at 4/5 MS. Left dorsiflexion remains at 3/5. Right extremities remain at 5/5 MS. Patient states that therapy has been going well and will continue with therapy. Will continue with current plan of care and medications Qualifiers: CVA mechanism: unspecified Qualified Code(s): I63.9 - Cerebral infarction, unspecified (2) HTN (hypertension) Current Visit: Yes Status: Chronic Assessment and plan: Patient's blood pressure continues to have occasional elevated systolic pressures, although is better controlled over the last several days. We will continue with when necessary clonidine and continue to monitor. Qualifiers: Hypertension type: essential hypertension Qualified Code(s): I10 - Essential (primary) hypertension - Time Spent With Patient less than 15 minutes - Subjective Interval history: Patient appears relaxed and currently denies any discomforts or shortness of breath. Patient states that he continues to regain gross motor movement on his left arm over the past week. States that his left dorsiflexion has not responded as fast. Patient states that he believe his physical therapy has been progressing well. Patient currently denies any constipation which is been an issue of earlier in his admission - Constitutional Vitals: Temp Pulse Resp BP Pulse Ox 98.2 F 75 16 162/63 97 02/11/18 07:00 02/11/18 07:00 02/11/18 07:00 02/11/18 07:00 02/11/18 07:00 General appearance: Present: cooperative, A&O X 3, pleasant, no acute distress, answers questions appropriately - Head Head exam: Present: atraumatic, normocephalic - Eye Eye exam: Present: PERRL, conjuntiva pink, sclera anicteric Pupils: Present: PERRL - Neck Neck exam general surgery: Present: supple, trachea midline. Absent: lymphadenopathy - Respiratory Respiratory exam: Present: CTAB. Absent: accessory muscle use, rales, rhonchi, wheezes - Cardiovascular Cardiovascular exam: Present: RRR, +S1, +S2. Absent: diastolic murmur, gallop, rubs, systolic murmur - GI/Abdominal GI/Abdominal exam: Present: normal bowel sounds, soft, no peritoneal signs. Absent: distended, tenderness - Extremities Exam Extremities exam: Present: warm, radial pulses palpable and symmetrical. Absent : calf tenderness, cyanotic, pedal edema - Neurological Exam Neurological exam: Present: CN II-XII intact, oriented X3. Absent: pronater drift, facial droop, speech deficit Additional comments: Patient continues to have slight left hemiparesis with left extremities at 4/5 muscle strength. Patient noted to have left dorsiflex weakness at 3/5. Right extremities are 5/5. No decreased sensation reported. - Skin Skin exam: Present: dry, intact Internal Medicine: Result - Labs CBC & Chem 7: 02/08/18 05:35 02/08/18 05:35 - ABG Interpretation ABG results: PT/INR, D-dimer PT 12.2 Seconds (9.4-12.1) H 01/30/18 05:30 Consult Discharge Plan - Plan Referrals: Venancio Mcclendon MD [Family Provider] - Kenya Francis CNP [Primary Care Provider] -
[2018-02-11] MEDS: Metoprolol XL (24 HR) Succ 25 MG TAB.ER.24H PO SCH (12:16)
[2018-02-11 12:53] LABS: BUN/Creatinine Ratio 24 (6-26); Blood Urea Nitrogen 27 mg/dL (8-23); Calcium 9.6 mg/dL (8.6-10.3); Carbon Dioxide 25 mEq/L (23-29); Chloride 97 mEq/L (98-107); Glucose 137 mg/dL (70-105); Osmolality,Calculated 277 (280-300); Potassium 4.4 mEq/L (3.5-5.1); Sodium 130 mEq/L (136-145); eGFR For Non-African Americans > 60 (> 60)
[2018-02-11 15:50] LABS: Hematocrit 36.6 % (37.5-50.1); Hemoglobin 12.9 g/dL (12.9-16.9); Mean Corpuscular HGB Conc 35.2 g/dL (31.6-35.5); Mean Corpuscular Hemoglobin 33.9 pg (28.0-33.3); Mean Corpuscular Volume 96.3 fL (83.0-100.0); Mean Platelet Volume 9.1 fL (9.4-12.4); Platelet Count 198 K/mcL (140-400); Red Cell Distribution Width 14.8 % (11.5-14.5)
[2018-02-12] MEDS: *HR* Enoxaparin 40 MG/0.4 ML SYRINGE SQ SCH (05:44)
[2018-02-12] MEDS: Metoprolol XL (24 HR) Succ 25 MG TAB.ER.24H PO SCH (08:15)
[2018-02-12] MEDS: Magnesium Oxide 400 MG TABLET PO SCH (08:16)
[2018-02-12] MEDS: Cholecalciferol (D-3) 1,000 UNIT TABLET PO SCH (08:16)
[2018-02-12] MEDS: Sennosides 8.6 MG TABLET PO SCH ×2 (08:16→22:17)
[2018-02-12] MEDS: Lisinopril 20 MG TABLET PO SCH (08:16)
--- NOTE | 2018-02-12 09:57 | Internal Med Progress Note ---
Date of Encounter: 02/12/18 Time of Encounter: 09:54 - Assessment and plan (1) Stroke Current Visit: Yes Status: Acute Assessment and plan: Patient is a ischemic CVA of the jose rafael. Patient continues to show improvement of his exam over the past few weeks for his gross motor movement of the left left extremities at 4/5 MS. Left dorsiflexion remains at 3/5. Right extremities remain at 5/5 MS. patient with improved ambulation after placement of brace to left foot due to decreased dorsiflexion. Patient states that therapy has been going well and will continue with therapy. Will continue with current plan of care and medications Qualifiers: CVA mechanism: unspecified Qualified Code(s): I63.9 - Cerebral infarction, unspecified (2) HTN (hypertension) Current Visit: Yes Status: Chronic Assessment and plan: Patient's blood pressure continues to have occasional elevated systolic pressures, although is better controlled over the last several days. We will continue with when necessary clonidine and continue to monitor. Qualifiers: Hypertension type: essential hypertension Qualified Code(s): I10 - Essential (primary) hypertension - Time Spent With Patient less than 15 minutes - Subjective Interval history: Patient continues to appear relaxed and denies any current discomforts or shortness of breath. Patient states that he continues to have improved motor strength to his left extremities. Patient states that he has had easier ambulation with the use of brace to his left foot due to decreased dorsiflexion. - Constitutional Vitals: Temp Pulse Resp BP Pulse Ox 98.0 F 65 16 159/70 97 02/12/18 07:00 02/12/18 07:00 02/12/18 07:00 02/12/18 07:00 02/12/18 07:00 General appearance: Present: cooperative, A&O X 3, pleasant, no acute distress, answers questions appropriately - Head Head exam: Present: atraumatic, normocephalic - Eye Eye exam: Present: PERRL, conjuntiva pink, sclera anicteric Pupils: Present: PERRL - Neck Neck exam general surgery: Present: supple, trachea midline. Absent: lymphadenopathy - Respiratory Respiratory exam: Present: CTAB. Absent: accessory muscle use, rales, rhonchi, wheezes - Cardiovascular Cardiovascular exam: Present: RRR, +S1, +S2. Absent: diastolic murmur, gallop, rubs, systolic murmur - GI/Abdominal GI/Abdominal exam: Present: normal bowel sounds, soft, no peritoneal signs. Absent: distended, tenderness - Extremities Exam Extremities exam: Present: warm, radial pulses palpable and symmetrical. Absent : calf tenderness, cyanotic, pedal edema - Neurological Exam Neurological exam: Present: CN II-XII intact, oriented X3. Absent: pronater drift, facial droop, speech deficit Additional comments: Patient continues to have very slight left hemiparesis with left extremities showing 4/5 muscle strength and continues to have 3/5 muscle strength on left dorsiflexion. Right extremities show 5/5 muscle strength. No other focal deficits noted on exam. - Skin Skin exam: Present: dry, intact Internal Medicine: Result - Labs CBC & Chem 7: 02/11/18 12:35 02/11/18 12:35 Labs: Short CBC 02/11/18 Range/Units 12:35 WBC 9.1 (4.3-11.1) K/mcL Hgb 12.9 (12.9-16.9) g/dL Hct 36.6 L (37.5-50.1) % Plt Count 198 (140-400) K/mcL BMP 02/11/18 12:35 Sodium 130 L Potassium 4.4 Chloride 97 L Carbon Dioxide 25 BUN 27 H Creatinine 1.11 Glucose 137 H Calcium 9.6 - ABG Interpretation ABG results: PT/INR, D-dimer PT 12.2 Seconds (9.4-12.1) H 01/30/18 05:30 Consult Discharge Plan - Plan Referrals: Venancio Mcclendon MD [Family Provider] - Kenya Francis CNP [Primary Care Provider] -
[2018-02-13] MEDS: *HR* Enoxaparin 40 MG/0.4 ML SYRINGE SQ SCH (05:08)
[2018-02-13] MEDS: Magnesium Oxide 400 MG TABLET PO SCH (08:21)
[2018-02-13] MEDS: Metoprolol XL (24 HR) Succ 25 MG TAB.ER.24H PO SCH (08:21)
[2018-02-13] MEDS: Lisinopril 20 MG TABLET PO SCH (08:21)
[2018-02-13] MEDS: Sennosides 8.6 MG TABLET PO SCH ×2 (08:21→19:49)
[2018-02-13] MEDS: Cholecalciferol (D-3) 1,000 UNIT TABLET PO SCH (08:21)
--- NOTE | 2018-02-13 16:39 | Internal Med Progress Note ---
Date of Encounter: 02/13/18 Time of Encounter: 16:37 - Assessment and plan (1) Stroke Current Visit: Yes Status: Acute Assessment and plan: He seems to be progressing nicely in the scanning function back in his left side. He seems to have less mood swings and is doing okay on his antidepressant. Qualifiers: CVA mechanism: unspecified Qualified Code(s): I63.9 - Cerebral infarction, unspecified (2) HTN (hypertension) Current Visit: Yes Status: Chronic Assessment and plan: Patient's blood pressure seems adequately stable. Will follow. Qualifiers: Hypertension type: essential hypertension Qualified Code(s): I10 - Essential (primary) hypertension (3) HLD (hyperlipidemia) Current Visit: No Status: Chronic Assessment and plan: Clinically stable. We will continue home regimen and follow. Qualifiers: Hyperlipidemia type: unspecified Qualified Code(s): E78.5 - Hyperlipidemia , unspecified - Subjective Interval history: Patient is doing fine and is moving bowels and bladder well. He denies pain in his shoulder. He is pleased with resumption of function in his left upper extremity. Left lower extremity is also improving in terms of dorsiflexion, as well. Patient has no other complaints and notes no change in his physical abilities. Patient has no complaint of chest discomfort, dyspnea, orthopnea, palpitations, nausea or vomiting, constipation or diarrhea, other changes in bowel habits, difficulty with urination, rash or itching, or other new complaints, except as mentioned above. Review of systems is otherwise negative. I discussed management of her care with nursing staff. - Constitutional Vitals: Temp Pulse Resp BP Pulse Ox 98.8 F 64 16 145/74 97 02/13/18 07:45 02/13/18 07:45 02/13/18 07:45 02/13/18 07:45 02/13/18 07:45 General appearance: Present: pleasant Exam: Examination: (Except as mentioned above): General: In no apparent distress. Alert and oriented 3. Nondiaphoretic. Head: Atraumatic and normocephalic. Respiratory: No use of accessory muscles. Lungs are clear throughout. Normal airflow. Cardiovascular: Regular rate and rhythm without murmur appreciated. Abdomen: Bowel sounds are normal. No hepatosplenomegaly mass or tenderness appreciated. Obese and therefore difficult to palpate deeply. Extremities: No cyanosis clubbing or edema. Skin: Warm and non-diaphoretic with no new lesions noted. Internal Medicine: Result - Labs CBC & Chem 7: 02/11/18 12:35 02/11/18 12:35 - ABG Interpretation ABG results: PT/INR, D-dimer PT 12.2 Seconds (9.4-12.1) H 01/30/18 05:30 Consult Discharge Plan - Plan Referrals: Venancio Mcclendon MD [Family Provider] - Kenya Francis CNP [Primary Care Provider] -
[2018-02-14] MEDS: *HR* Enoxaparin 40 MG/0.4 ML SYRINGE SQ SCH (05:12)
[2018-02-14] MEDS: Sennosides 8.6 MG TABLET PO SCH ×2 (09:03→19:43)
[2018-02-14] MEDS: Lisinopril 20 MG TABLET PO SCH (09:03)
[2018-02-14] MEDS: Magnesium Oxide 400 MG TABLET PO SCH (09:03)
[2018-02-14] MEDS: Cholecalciferol (D-3) 1,000 UNIT TABLET PO SCH (09:03)
[2018-02-14] MEDS: Metoprolol XL (24 HR) Succ 25 MG TAB.ER.24H PO SCH (09:03)
--- NOTE | 2018-02-14 12:11 | Internal Med Progress Note ---
Date of Encounter: 02/14/18 Time of Encounter: 12:09 - Assessment and plan (1) Stroke Current Visit: Yes Status: Acute Assessment and plan: Patient is a ischemic CVA of the jose rafael. Patient continues to show improvement of his exam over the past few weeks for his gross motor movement of the left arm at 4/5 MS and left lower extremity and 4+/5 MS. Left dorsiflexion remains at 3/5. Right extremities remain at 5/5 MS. patient with improved ambulation after placement of brace to left foot due to decreased dorsiflexion. Patient states that therapy has been going well and will continue with therapy. Will continue with current plan of care and medications Qualifiers: CVA mechanism: unspecified Qualified Code(s): I63.9 - Cerebral infarction, unspecified (2) HTN (hypertension) Current Visit: Yes Status: Chronic Assessment and plan: Patient's blood pressure continues to have occasional elevated systolic pressures, although is better controlled over the last several days. We will continue with when necessary clonidine and continue to monitor. Qualifiers: Hypertension type: essential hypertension Qualified Code(s): I10 - Essential (primary) hypertension - Time Spent With Patient less than 15 minutes - Subjective Interval history: Patient continues to appear relaxed and denies any current discomforts or shortness of breath. Patient states that he continues to have improved motor strength to his left extremities. Patient states that he has had easier ambulation with the use of brace to his left foot due to decreased dorsiflexion. - Constitutional Vitals: Temp Pulse Resp BP Pulse Ox 97.8 F 67 16 130/72 97 02/14/18 07:00 02/14/18 07:00 02/14/18 07:00 02/14/18 07:00 02/14/18 07:00 General appearance: Present: A&O X 3, pleasant - Head Head exam: Present: atraumatic, normocephalic - Eye Eye exam: Present: PERRL, conjuntiva pink, sclera anicteric Pupils: Present: PERRL - Neck Neck exam general surgery: Present: supple, trachea midline. Absent: lymphadenopathy - Respiratory Respiratory exam: Present: CTAB. Absent: accessory muscle use, rales, rhonchi, wheezes - Cardiovascular Cardiovascular exam: Present: RRR, +S1, +S2. Absent: diastolic murmur, gallop, rubs, systolic murmur - GI/Abdominal GI/Abdominal exam: Present: normal bowel sounds, soft, no peritoneal signs. Absent: distended, tenderness - Extremities Exam Extremities exam: Present: warm, radial pulses palpable and symmetrical. Absent : calf tenderness, cyanotic, pedal edema - Neurological Exam Neurological exam: Present: CN II-XII intact, oriented X3. Absent: pronater drift, facial droop, speech deficit Additional comments: Slight left hemiparesis with left upper extremity 4/5 and left lower extremity at 4+/5. Left dorsiflexion remains 3/5, but improved. Right extremity muscle strength at 5/5. - Skin Skin exam: Present: dry, intact Internal Medicine: Result - Labs CBC & Chem 7: 02/11/18 12:35 02/11/18 12:35 - ABG Interpretation ABG results: PT/INR, D-dimer PT 12.2 Seconds (9.4-12.1) H 01/30/18 05:30 Consult Discharge Plan - Plan Referrals: Venancio Mcclendon MD [Family Provider] - Kenya Francis CNP [Primary Care Provider] -
[2018-02-15] MEDS: *HR* Enoxaparin 40 MG/0.4 ML SYRINGE SQ SCH (05:44)
[2018-02-15 06:03] LABS: Basophils # 0.1 K/mcL (0.0-0.2); Basophils % 1.1 %; Eosinophils # 0.4 K/mcL (0.0-0.6); Hematocrit 34.4 % (37.5-50.1); Hemoglobin 11.9 g/dL (12.9-16.9); Immature Granulocytes % 0.6 % (0-4); Lymphocytes % 33.1 %; Mean Corpuscular HGB Conc 34.6 g/dL (31.6-35.5); Mean Corpuscular Hemoglobin 33.4 pg (28.0-33.3); Mean Corpuscular Volume 96.6 fL (83.0-100.0); Mean Platelet Volume 9.5 fL (9.4-12.4); Monocytes # 0.8 K/mcL (0.0-1.3); Monocytes % 8.7 %; Neutrophils # 4.8 K/mcL (1.6-8.9); Platelet Count 186 K/mcL (140-400); Red Blood Count 3.56 M/mcL (4.19-5.50); Red Cell Distribution Width 14.7 % (11.5-14.5); Segmented Neutrophils % 52.5 %
[2018-02-15 06:23] LABS: BUN/Creatinine Ratio 22 (6-26); Blood Urea Nitrogen 27 mg/dL (8-23); Calcium 9.2 mg/dL (8.6-10.3); Carbon Dioxide 27 mEq/L (23-29); Chloride 100 mEq/L (98-107); Glucose 101 mg/dL (70-105); Osmolality,Calculated 277 (280-300); Potassium 4.8 mEq/L (3.5-5.1); Sodium 131 mEq/L (136-145); eGFR For Non-African Americans 59 (> 60)
[2018-02-15] MEDS: Magnesium Oxide 400 MG TABLET PO SCH (09:16)
[2018-02-15] MEDS: Cholecalciferol (D-3) 1,000 UNIT TABLET PO SCH (09:16)
[2018-02-15] MEDS: Metoprolol XL (24 HR) Succ 25 MG TAB.ER.24H PO SCH (09:17)
[2018-02-15] MEDS: Sennosides 8.6 MG TABLET PO SCH ×2 (09:17→19:32)
[2018-02-15] MEDS: Lisinopril 20 MG TABLET PO SCH (09:17)
[2018-02-15] MEDS: Acetaminophen 325 MG TABLET PO PRN (09:17)
--- NOTE | 2018-02-15 11:39 | Internal Med Progress Note ---
Date of Encounter: 02/15/18 Time of Encounter: 11:36 - Assessment and plan (1) Stroke Current Visit: Yes Status: Acute Assessment and plan: Patient is a ischemic CVA of the jose rafael. Patient continues to show improvement of his exam over the past few weeks for his gross motor movement of the left extremities at 4/5 MS. Left dorsiflexion remains at 3/5. Right extremities remain at 5/5 MS. Patient continues with improved ambulation after placement of brace to left foot due to decreased dorsiflexion. Patient states that therapy has been going well and will continue with therapy. Will continue with current plan of care and medications Qualifiers: CVA mechanism: unspecified Qualified Code(s): I63.9 - Cerebral infarction, unspecified (2) HTN (hypertension) Current Visit: Yes Status: Chronic Assessment and plan: Patient's blood pressure continues to have occasional elevated systolic pressures, although is better controlled over the last several days. We will continue with when necessary clonidine and continue to monitor. Qualifiers: Hypertension type: essential hypertension Qualified Code(s): I10 - Essential (primary) hypertension - Time Spent With Patient less than 15 minutes - Subjective Interval history: Patient appears relaxed currently denies any discomforts shortness of breath. Patient states that physical therapy continues to progress well that he continues to have improvements on strength on his left extremities. - Constitutional Vitals: Temp Pulse Resp BP Pulse Ox 98.2 F 73 17 126/73 97 02/15/18 08:19 02/15/18 08:19 02/15/18 08:19 02/15/18 08:19 02/15/18 08:19 General appearance: Present: A&O X 3, pleasant - Head Head exam: Present: atraumatic, normocephalic - Eye Eye exam: Present: PERRL, conjuntiva pink, sclera anicteric Pupils: Present: PERRL - Neck Neck exam general surgery: Present: supple, trachea midline. Absent: lymphadenopathy - Respiratory Respiratory exam: Present: CTAB. Absent: accessory muscle use, rales, rhonchi, wheezes - Cardiovascular Cardiovascular exam: Present: RRR, +S1, +S2. Absent: diastolic murmur, gallop, rubs, systolic murmur - GI/Abdominal GI/Abdominal exam: Present: normal bowel sounds, soft, no peritoneal signs. Absent: distended, tenderness - Extremities Exam Extremities exam: Present: warm, radial pulses palpable and symmetrical. Absent : calf tenderness, cyanotic, pedal edema - Neurological Exam Neurological exam: Present: CN II-XII intact, oriented X3. Absent: pronater drift, facial droop, speech deficit Additional comments: Patient continues to have left hemiparesis with slight weakness noted to left extremities of 4/5 muscle strength and continues to have 3/5 muscle strength on left dorsiflexion. Right extremities remain at 5/5 muscle strength. No other focal deficits noted on exam. - Skin Skin exam: Present: dry, intact Internal Medicine: Result - Labs CBC & Chem 7: 02/15/18 05:40 02/15/18 05:40 Labs: Short CBC 02/15/18 Range/Units 05:40 WBC 9.1 (4.3-11.1) K/mcL Hgb 11.9 L (12.9-16.9) g/dL Hct 34.4 L (37.5-50.1) % Plt Count 186 (140-400) K/mcL Neutrophils # 4.8 (1.6-8.9) K/mcL BMP 02/15/18 05:40 Sodium 131 L Potassium 4.8 Chloride 100 Carbon Dioxide 27 BUN 27 H Creatinine 1.21 Glucose 101 Calcium 9.2 - ABG Interpretation ABG results: PT/INR, D-dimer PT 12.2 Seconds (9.4-12.1) H 01/30/18 05:30 Consult Discharge Plan - Plan Referrals: Venancio Mcclendon MD [Family Provider] - Kenya Francis CNP [Primary Care Provider] -
[2018-02-16] MEDS: *HR* Enoxaparin 40 MG/0.4 ML SYRINGE SQ SCH (05:52)
[2018-02-16] MEDS: Sennosides 8.6 MG TABLET PO SCH ×2 (08:43→20:51)
[2018-02-16] MEDS: Cholecalciferol (D-3) 1,000 UNIT TABLET PO SCH (08:43)
[2018-02-16] MEDS: Acetaminophen 325 MG TABLET PO PRN (08:44)
[2018-02-16] MEDS: Metoprolol XL (24 HR) Succ 25 MG TAB.ER.24H PO SCH (08:44)
[2018-02-16] MEDS: Lisinopril 20 MG TABLET PO SCH (08:45)
[2018-02-16] MEDS: Magnesium Oxide 400 MG TABLET PO SCH (08:45)
--- NOTE | 2018-02-16 09:15 | Internal Med Progress Note ---
Date of Encounter: 02/16/18 Time of Encounter: 09:13 - Assessment and plan (1) Stroke Current Visit: Yes Status: Acute Assessment and plan: No new neurological deficits at this time. Continue PT and OT. Will monitor progress. Follow up with neurologist as scheduled. Qualifiers: CVA mechanism: unspecified Qualified Code(s): I63.9 - Cerebral infarction, unspecified (2) HTN (hypertension) Current Visit: Yes Status: Chronic Assessment and plan: Controlled with current medication. Monitor blood pressure. Qualifiers: Hypertension type: essential hypertension Qualified Code(s): I10 - Essential (primary) hypertension - Time Spent With Patient less than 15 minutes - Subjective Interval history: participating well with therapy. No new neurological deficits. Denies fever, chills, nausea vomiting or diarrhea. Maintaining appetite and hydration. States bowels last moved yesterday. states he slept well. - Constitutional Vitals: Temp Pulse Resp BP Pulse Ox 98.9 F 64 16 142/54 97 02/16/18 06:00 02/16/18 06:00 02/16/18 06:00 02/16/18 06:00 02/16/18 06:00 General appearance: Present: cooperative, A&O X 3, pleasant, no acute distress, answers questions appropriately - Head Head exam: Present: atraumatic, normocephalic - Eye Eye exam: Present: PERRL, conjuntiva pink, sclera anicteric Pupils: Present: PERRL - Neck Neck exam general surgery: Present: supple, trachea midline. Absent: lymphadenopathy - Respiratory Respiratory exam: Present: CTAB. Absent: accessory muscle use, rales, rhonchi, wheezes - Cardiovascular Cardiovascular exam: Present: RRR, +S1, +S2. Absent: diastolic murmur, gallop, rubs, systolic murmur - GI/Abdominal GI/Abdominal exam: Present: normal bowel sounds, soft, no peritoneal signs. Absent: distended, tenderness - Extremities Exam Extremities exam: Present: warm, radial pulses palpable and symmetrical. Absent : calf tenderness, cyanotic, pedal edema Additional comments: strength LUE and LLE 4/5, strength RUE and RLE 5/5 - Neurological Exam Neurological exam: Present: CN II-XII intact, oriented X3, no focal deficits. Absent: pronater drift, facial droop, speech deficit - Skin Skin exam: Present: dry, intact Internal Medicine: Result - Labs CBC & Chem 7: 02/15/18 05:40 02/15/18 05:40 - ABG Interpretation ABG results: PT/INR, D-dimer PT 12.2 Seconds (9.4-12.1) H 01/30/18 05:30 - VTE Documentation of Mechanical Device: Graduated compression elastic hosiery Consult Discharge Plan - Plan Referrals: Venancio Mcclendon MD [Family Provider] - Kenya Francis CNP [Primary Care Provider] -
[2018-02-17] MEDS: *HR* Enoxaparin 40 MG/0.4 ML SYRINGE SQ SCH (05:33)
[2018-02-17] MEDS: Acetaminophen 325 MG TABLET PO PRN (08:17)
[2018-02-17] MEDS: Magnesium Oxide 400 MG TABLET PO SCH (08:17)
[2018-02-17] MEDS: Sennosides 8.6 MG TABLET PO SCH ×2 (08:19→20:52)
[2018-02-17] MEDS: Cholecalciferol (D-3) 1,000 UNIT TABLET PO SCH (08:19)
[2018-02-17] MEDS: Metoprolol XL (24 HR) Succ 25 MG TAB.ER.24H PO SCH (08:19)
[2018-02-17] MEDS: Lisinopril 20 MG TABLET PO SCH (08:19)
--- NOTE | 2018-02-17 09:28 | Internal Med Progress Note ---
Date of Encounter: 02/17/18 Time of Encounter: 09:26 - Assessment and plan (1) Stroke Current Visit: Yes Status: Acute Assessment and plan: Patient is a ischemic CVA of the jose rafael with no recent changes noted with neurological exam Patient continues to show improvement of his exam over the past few weeks for his gross motor movement of the left extremities at 4/5 MS. Left dorsiflexion remains at 3/5. Right extremities remain at 5/5 MS. Patient continues with improved ambulation after placement of brace to left foot due to decreased dorsiflexion. Continues to have some difficulty with fine motor movement of left hand. Patient states that therapy has been going well and will continue with therapy. Will continue with current plan of care and medications Qualifiers: CVA mechanism: unspecified Qualified Code(s): I63.9 - Cerebral infarction, unspecified (2) HTN (hypertension) Current Visit: Yes Status: Chronic Assessment and plan: Vital signs of been stable. We will continue with current medications. Qualifiers: Hypertension type: essential hypertension Qualified Code(s): I10 - Essential (primary) hypertension - Time Spent With Patient less than 15 minutes - Subjective Interval history: Patient appears relaxed currently denies any discomforts shortness of breath. Patient denies any constipation. Patient states that physical therapy continues to progress well that he continues to have improvements on strength on his left extremities. - Constitutional Vitals: Temp Pulse Resp BP Pulse Ox 98.6 F 78 18 132/67 94 02/17/18 07:16 02/17/18 07:16 02/17/18 07:16 02/17/18 07:16 02/17/18 07:16 General appearance: Present: cooperative, A&O X 3, pleasant, no acute distress, answers questions appropriately - Head Head exam: Present: atraumatic, normocephalic - Eye Eye exam: Present: PERRL, conjuntiva pink, sclera anicteric Pupils: Present: PERRL - Neck Neck exam general surgery: Present: supple, trachea midline. Absent: lymphadenopathy - Respiratory Respiratory exam: Present: CTAB. Absent: accessory muscle use, rales, rhonchi, wheezes - Cardiovascular Cardiovascular exam: Present: RRR, +S1, +S2. Absent: diastolic murmur, gallop, rubs, systolic murmur - GI/Abdominal GI/Abdominal exam: Present: normal bowel sounds, soft, no peritoneal signs. Absent: distended, tenderness - Extremities Exam Extremities exam: Present: warm, radial pulses palpable and symmetrical. Absent : calf tenderness, cyanotic, pedal edema - Neurological Exam Neurological exam: Present: CN II-XII intact, oriented X3, no focal deficits. Absent: pronater drift, facial droop, speech deficit Additional comments: Patient continues to have 4/5 muscle strength to left extremities and showing 3/ 5 muscle strength on left dorsiflexion. Right extremities show 5/5 muscle strength. Continues to have difficulty with fine motor movement of left hand. - Skin Skin exam: Present: dry, intact Internal Medicine: Result - Labs CBC & Chem 7: 02/15/18 05:40 02/15/18 05:40 - ABG Interpretation ABG results: PT/INR, D-dimer PT 12.2 Seconds (9.4-12.1) H 01/30/18 05:30 - VTE Documentation of Mechanical Device: Graduated compression elastic hosiery Consult Discharge Plan - Plan Referrals: Venancio Mcclendon MD [Family Provider] - Kenya Francis CNP [Primary Care Provider] -
[2018-02-18] MEDS: *HR* Enoxaparin 40 MG/0.4 ML SYRINGE SQ SCH (05:01)
[2018-02-18] MEDS: Lisinopril 20 MG TABLET PO SCH (08:06)
[2018-02-18] MEDS: Cholecalciferol (D-3) 1,000 UNIT TABLET PO SCH (08:06)
[2018-02-18] MEDS: Sennosides 8.6 MG TABLET PO SCH ×2 (08:06→21:33)
[2018-02-18] MEDS: Magnesium Oxide 400 MG TABLET PO SCH (08:07)
[2018-02-18] MEDS: Metoprolol XL (24 HR) Succ 25 MG TAB.ER.24H PO SCH (08:07)
--- NOTE | 2018-02-18 09:34 | Internal Med Progress Note ---
Date of Encounter: 02/18/18 Time of Encounter: 09:33 - Assessment and plan (1) Stroke Current Visit: Yes Status: Acute Assessment and plan: No new neurological deficits at this time. Continue PT and OT. Will monitor progress. Follow up with neurologist as scheduled. Qualifiers: CVA mechanism: unspecified Qualified Code(s): I63.9 - Cerebral infarction, unspecified (2) HTN (hypertension) Current Visit: Yes Status: Chronic Assessment and plan: Controlled with current medication. Monitor blood pressure. Qualifiers: Hypertension type: essential hypertension Qualified Code(s): I10 - Essential (primary) hypertension - Time Spent With Patient less than 15 minutes - Subjective Interval history: participating well with therapy. ambulating with FWW. working on balance. No new neurological deficits. Denies fever, chills, nausea vomiting or diarrhea. Maintaining appetite and hydration. States bowels last moved yesterday. states he slept well. - Constitutional Vitals: Temp Pulse Resp BP Pulse Ox 99.0 F 72 16 151/77 93 02/18/18 07:10 02/18/18 07:10 02/18/18 07:10 02/18/18 07:10 02/18/18 07:10 General appearance: Present: cooperative, A&O X 3, pleasant, no acute distress, answers questions appropriately - Head Head exam: Present: atraumatic, normocephalic - Eye Eye exam: Present: PERRL, conjuntiva pink, sclera anicteric Pupils: Present: PERRL - Neck Neck exam general surgery: Present: supple, trachea midline. Absent: lymphadenopathy - Respiratory Respiratory exam: Present: CTAB. Absent: accessory muscle use, rales, rhonchi, wheezes - Cardiovascular Cardiovascular exam: Present: RRR, +S1, +S2. Absent: diastolic murmur, gallop, rubs, systolic murmur - GI/Abdominal GI/Abdominal exam: Present: normal bowel sounds, soft, no peritoneal signs. Absent: distended, tenderness - Extremities Exam Extremities exam: Present: warm, radial pulses palpable and symmetrical. Absent : calf tenderness, cyanotic, pedal edema Additional comments: LUE 4/5, LLE 4/5 strength. - Neurological Exam Neurological exam: Present: CN II-XII intact, oriented X3, no focal deficits. Absent: pronater drift, facial droop, speech deficit - Skin Skin exam: Present: dry, intact Internal Medicine: Result - Labs CBC & Chem 7: 02/15/18 05:40 02/15/18 05:40 - ABG Interpretation ABG results: PT/INR, D-dimer PT 12.2 Seconds (9.4-12.1) H 01/30/18 05:30 - VTE Documentation of Mechanical Device: Graduated compression elastic hosiery Consult Discharge Plan - Plan Referrals: Venancio Mcclendon MD [Family Provider] - Kenya Francis CNP [Primary Care Provider] -
[2018-02-18] MEDS: cloNIDine HCl 0.1 MG TABLET PO PRN (21:29)
[2018-02-19] MEDS: *HR* Enoxaparin 40 MG/0.4 ML SYRINGE SQ SCH (05:11)
[2018-02-19] MEDS: Cholecalciferol (D-3) 1,000 UNIT TABLET PO SCH (08:16)
[2018-02-19] MEDS: Sennosides 8.6 MG TABLET PO SCH ×2 (08:16→21:08)
[2018-02-19] MEDS: Lisinopril 20 MG TABLET PO SCH (08:16)
[2018-02-19] MEDS: Metoprolol XL (24 HR) Succ 25 MG TAB.ER.24H PO SCH (08:17)
[2018-02-19] MEDS: Magnesium Oxide 400 MG TABLET PO SCH (08:17)
--- NOTE | 2018-02-19 10:18 | Internal Med Progress Note ---
Date of Encounter: 02/19/18 Time of Encounter: 10:15 - Assessment and plan (1) Stroke Current Visit: Yes Status: Acute Assessment and plan: Patient continues to make slow but sure progress. Coordination and safety are now of the main issues. Qualifiers: CVA mechanism: unspecified Qualified Code(s): I63.9 - Cerebral infarction, unspecified (2) HTN (hypertension) Current Visit: Yes Status: Chronic Assessment and plan: Patient's blood pressure seems adequately stable. Will follow. Qualifiers: Hypertension type: essential hypertension Qualified Code(s): I10 - Essential (primary) hypertension (3) HLD (hyperlipidemia) Current Visit: No Status: Chronic Assessment and plan: He is clinically stable. Qualifiers: Hyperlipidemia type: unspecified Qualified Code(s): E78.5 - Hyperlipidemia , unspecified (4) Dysarthria Current Visit: No Status: Acute Assessment and plan: He has been discharged from speech therapy. - Subjective Interval history: Patient without complaint. Bowels and bladder working fine. Still better upper arm strength but poor coordination. Patient has no complaint of chest discomfort, dyspnea, orthopnea, palpitations, nausea or vomiting, constipation or diarrhea, other changes in bowel habits, difficulty with urination, rash or itching, or other new complaints, except as mentioned above. Review of systems is otherwise negative. I discussed management of her care with nursing staff. - Constitutional Vitals: Temp Pulse Resp BP Pulse Ox 97.9 F 78 16 116/67 95 02/19/18 07:00 02/19/18 07:00 02/19/18 07:00 02/19/18 07:00 02/19/18 07:00 General appearance: Present: cooperative, pleasant Exam: Examination: (Except as mentioned above): General: In no apparent distress. Alert and oriented 3. Nondiaphoretic. Head: Atraumatic and normocephalic. Respiratory: No use of accessory muscles. Lungs are clear throughout. Normal airflow. Cardiovascular: Regular rate and rhythm without murmur appreciated. Abdomen: Bowel sounds are normal. No hepatosplenomegaly mass or tenderness appreciated. Obese and therefore difficult to palpate deeply. Extremities: No cyanosis clubbing or edema. Skin: Warm and non-diaphoretic with no new lesions noted. Internal Medicine: Result - Labs CBC & Chem 7: 02/15/18 05:40 02/15/18 05:40 - ABG Interpretation ABG results: PT/INR, D-dimer PT 12.2 Seconds (9.4-12.1) H 01/30/18 05:30 - VTE Documentation of Mechanical Device: Graduated compression elastic hosiery Consult Discharge Plan - Plan Referrals: Venancio Mcclendon MD [Family Provider] - Kenya Francis CNP [Primary Care Provider] -
[2018-02-20] MEDS: *HR* Enoxaparin 40 MG/0.4 ML SYRINGE SQ SCH (04:50)
[2018-02-20] MEDS: Cholecalciferol (D-3) 1,000 UNIT TABLET PO SCH (07:43)
[2018-02-20] MEDS: Magnesium Oxide 400 MG TABLET PO SCH (07:43)
[2018-02-20] MEDS: Sennosides 8.6 MG TABLET PO SCH ×2 (07:43→21:57)
[2018-02-20] MEDS: Lisinopril 20 MG TABLET PO SCH (07:43)
[2018-02-20] MEDS: Metoprolol XL (24 HR) Succ 25 MG TAB.ER.24H PO SCH (07:43)
--- NOTE | 2018-02-20 11:37 | Internal Med Progress Note ---
Date of Encounter: 02/20/18 Time of Encounter: 11:36 - Assessment and plan (1) Stroke Current Visit: Yes Status: Acute Assessment and plan: Patient continues to make progress. Will continue with therapies as planned and discharge when he is felt to be stable, per therapy. As before, fall risk is the main concern at this point. Qualifiers: CVA mechanism: embolism Precerebral and cerebral artery: unspecified precerebral artery Qualified Code(s): I63.10 - Cerebral infarction due to embolism of unspecified precerebral artery (2) HTN (hypertension) Current Visit: Yes Status: Chronic Assessment and plan: This is doing better and will continue to follow. Qualifiers: Hypertension type: essential hypertension Qualified Code(s): I10 - Essential (primary) hypertension (3) HLD (hyperlipidemia) Current Visit: No Status: Chronic Assessment and plan: We will continue regimen as current. Qualifiers: Hyperlipidemia type: unspecified Qualified Code(s): E78.5 - Hyperlipidemia , unspecified (4) Dysarthria Current Visit: No Status: Acute Assessment and plan: Improved and speech therapy has signed off. - Subjective Interval history: Patient has no complaint of chest discomfort, dyspnea, orthopnea, palpitations, nausea or vomiting, constipation or diarrhea, other changes in bowel habits, difficulty with urination, rash or itching, or other new complaints, except as mentioned above. Review of systems is otherwise negative. I discussed management of her care with nursing staff. - Constitutional Vitals: Temp Pulse Resp BP Pulse Ox 97.8 F 68 18 137/83 96 02/20/18 06:53 02/20/18 06:53 02/20/18 06:53 02/20/18 06:53 02/20/18 06:53 Exam: Examination: (Except as mentioned above): General: In no apparent distress. Alert and oriented 3. Nondiaphoretic. Head: Atraumatic and normocephalic. Respiratory: No use of accessory muscles. Lungs are clear throughout. Normal airflow. Cardiovascular: Regular rate and rhythm without murmur appreciated. Abdomen: Bowel sounds are normal. No hepatosplenomegaly mass or tenderness appreciated. Obese and therefore difficult to palpate deeply. Patient is examined upright in chair and this also limits exam. Extremities: No cyanosis clubbing or edema. Skin: Warm and non-diaphoretic with no new lesions noted. Internal Medicine: Result - Labs CBC & Chem 7: 02/15/18 05:40 02/15/18 05:40 - ABG Interpretation ABG results: PT/INR, D-dimer PT 12.2 Seconds (9.4-12.1) H 01/30/18 05:30 - VTE Documentation of Mechanical Device: Graduated compression elastic hosiery Consult Discharge Plan - Plan Referrals: Venancio Mcclendon MD [Family Provider] - Kenya Francis CNP [Primary Care Provider] -
[2018-02-21] MEDS: *HR* Enoxaparin 40 MG/0.4 ML SYRINGE SQ SCH (05:56)
[2018-02-21] MEDS: Lisinopril 20 MG TABLET PO SCH (09:40)
[2018-02-21] MEDS: Cholecalciferol (D-3) 1,000 UNIT TABLET PO SCH (09:40)
[2018-02-21] MEDS: Magnesium Oxide 400 MG TABLET PO SCH (09:40)
[2018-02-21] MEDS: Metoprolol XL (24 HR) Succ 25 MG TAB.ER.24H PO SCH (09:40)
[2018-02-21] MEDS: Sennosides 8.6 MG TABLET PO SCH ×2 (09:41→20:32)
--- NOTE | 2018-02-21 10:17 | Internal Med Progress Note ---
Date of Encounter: 02/21/18 Time of Encounter: 10:16 - Assessment and plan (1) Stroke Current Visit: Yes Status: Acute Assessment and plan: No new neurological deficits at this time. Continue PT and OT. Will monitor progress. Follow up with neurologist as scheduled. Qualifiers: CVA mechanism: embolism Precerebral and cerebral artery: unspecified precerebral artery Qualified Code(s): I63.10 - Cerebral infarction due to embolism of unspecified precerebral artery (2) HTN (hypertension) Current Visit: Yes Status: Chronic Assessment and plan: Controlled with current medication. Monitor blood pressure. Qualifiers: Hypertension type: essential hypertension Qualified Code(s): I10 - Essential (primary) hypertension - Time Spent With Patient less than 15 minutes - Subjective Interval history: participating well with therapy. ambulating with FWW. working on balance. No new neurological deficits. Denies fever, chills, nausea vomiting or diarrhea. Maintaining appetite and hydration. States bowels last moved yesterday. states he slept well. Denies any new issues at this time. States slept well last night. - Constitutional Vitals: Temp Pulse Resp BP Pulse Ox 98.1 F 71 18 129/66 97 02/21/18 06:54 02/21/18 06:54 02/21/18 06:54 02/21/18 06:54 02/21/18 06:54 General appearance: Present: cooperative, A&O X 3, pleasant, no acute distress, answers questions appropriately - Head Head exam: Present: atraumatic, normocephalic - Eye Eye exam: Present: PERRL, conjuntiva pink, sclera anicteric Pupils: Present: PERRL - Neck Neck exam general surgery: Present: supple, trachea midline. Absent: lymphadenopathy - Respiratory Respiratory exam: Present: CTAB. Absent: accessory muscle use, rales, rhonchi, wheezes - Cardiovascular Cardiovascular exam: Present: RRR, +S1, +S2. Absent: diastolic murmur, gallop, rubs, systolic murmur - GI/Abdominal GI/Abdominal exam: Present: normal bowel sounds, soft, no peritoneal signs. Absent: distended, tenderness - Extremities Exam Extremities exam: Present: warm, radial pulses palpable and symmetrical. Absent : calf tenderness, cyanotic, pedal edema Additional comments: Left lower extremity strength 4\5 - Neurological Exam Neurological exam: Present: CN II-XII intact, oriented X3, no focal deficits. Absent: pronater drift, facial droop, speech deficit - Skin Skin exam: Present: dry, intact Internal Medicine: Result - Labs CBC & Chem 7: 02/15/18 05:40 02/15/18 05:40 - ABG Interpretation ABG results: PT/INR, D-dimer PT 12.2 Seconds (9.4-12.1) H 01/30/18 05:30 - VTE Documentation of Mechanical Device: Graduated compression elastic hosiery Consult Discharge Plan - Plan Referrals: Venancio Mcclendon MD [Family Provider] - Kenya Francis CNP [Primary Care Provider] -
[2018-02-22] MEDS: *HR* Enoxaparin 40 MG/0.4 ML SYRINGE SQ SCH (04:54)
[2018-02-22 06:14] LABS: Basophils # 0.1 K/mcL (0.0-0.2); Basophils % 0.8 %; Eosinophils # 0.4 K/mcL (0.0-0.6); Eosinophils % 4.5 %; Hematocrit 32.6 % (37.5-50.1); Hemoglobin 11.3 g/dL (12.9-16.9); Immature Granulocytes % 1.1 % (0-4); Lymphocytes # 2.4 K/mcL (0.6-4.6); Lymphocytes % 28.8 %; Mean Corpuscular HGB Conc 34.7 g/dL (31.6-35.5); Mean Corpuscular Hemoglobin 33.5 pg (28.0-33.3); Mean Corpuscular Volume 96.7 fL (83.0-100.0); Mean Platelet Volume 9.2 fL (9.4-12.4); Monocytes # 0.7 K/mcL (0.0-1.3); Monocytes % 8.5 %; Neutrophils # 4.7 K/mcL (1.6-8.9); Platelet Count 190 K/mcL (140-400); Red Blood Count 3.37 M/mcL (4.19-5.50); Red Cell Distribution Width 14.6 % (11.5-14.5); Segmented Neutrophils % 56.3 %
[2018-02-22 06:32] LABS: BUN/Creatinine Ratio 21 (6-26); Blood Urea Nitrogen 24 mg/dL (8-23); Calcium 9.1 mg/dL (8.6-10.3); Carbon Dioxide 25 mEq/L (23-29); Chloride 101 mEq/L (98-107); Glucose 108 mg/dL (70-105); Osmolality,Calculated 279 (280-300); Potassium 4.5 mEq/L (3.5-5.1); Sodium 132 mEq/L (136-145); eGFR For Non-African Americans > 60 (> 60)
[2018-02-22] MEDS: Sennosides 8.6 MG TABLET PO SCH ×2 (10:09→21:36)
[2018-02-22] MEDS: Magnesium Oxide 400 MG TABLET PO SCH (10:09)
[2018-02-22] MEDS: Lisinopril 20 MG TABLET PO SCH (10:09)
[2018-02-22] MEDS: Cholecalciferol (D-3) 1,000 UNIT TABLET PO SCH (10:10)
[2018-02-22] MEDS: Metoprolol XL (24 HR) Succ 25 MG TAB.ER.24H PO SCH (10:10)
[2018-02-22] MEDS: cloNIDine HCl 0.1 MG TABLET PO PRN (10:12)
--- NOTE | 2018-02-22 10:51 | Internal Med Progress Note ---
Date of Encounter: 02/22/18 Time of Encounter: 10:50 - Assessment and plan (1) Stroke Current Visit: Yes Status: Acute Assessment and plan: No new neurological deficits at this time. Continue PT and OT. Will monitor progress. Follow up with neurologist as scheduled. Qualifiers: CVA mechanism: embolism Precerebral and cerebral artery: unspecified precerebral artery Qualified Code(s): I63.10 - Cerebral infarction due to embolism of unspecified precerebral artery (2) HTN (hypertension) Current Visit: Yes Status: Chronic Assessment and plan: Controlled with current medication. Monitor blood pressure. Qualifiers: Hypertension type: essential hypertension Qualified Code(s): I10 - Essential (primary) hypertension - Time Spent With Patient less than 15 minutes - Subjective Interval history: participating well with therapy. ambulating with FWW. working on balance and fine motor skills. No new neurological deficits. Denies fever, chills, nausea vomiting or diarrhea. Maintaining appetite and hydration. States bowels last moved yesterday. states he slept well. Denies any new issues at this time. States slept well last night. - Constitutional Vitals: Temp Pulse Resp BP Pulse Ox 98.1 F 68 16 173/77 97 02/22/18 07:43 02/22/18 07:43 02/22/18 07:43 02/22/18 07:43 02/22/18 07:43 General appearance: Present: cooperative, A&O X 3, pleasant, no acute distress, answers questions appropriately - Head Head exam: Present: atraumatic, normocephalic - Eye Eye exam: Present: PERRL, conjuntiva pink, sclera anicteric Pupils: Present: PERRL - Neck Neck exam general surgery: Present: supple, trachea midline. Absent: lymphadenopathy - Respiratory Respiratory exam: Present: CTAB. Absent: accessory muscle use, rales, rhonchi, wheezes - Cardiovascular Cardiovascular exam: Present: RRR, +S1, +S2. Absent: diastolic murmur, gallop, rubs, systolic murmur - GI/Abdominal GI/Abdominal exam: Present: normal bowel sounds, soft, no peritoneal signs. Absent: distended, tenderness - Extremities Exam Extremities exam: Present: warm, radial pulses palpable and symmetrical. Absent : calf tenderness, cyanotic, pedal edema Additional comments: LUE strength 4/5 - Neurological Exam Neurological exam: Present: CN II-XII intact, oriented X3, no focal deficits. Absent: pronater drift, facial droop, speech deficit - Skin Skin exam: Present: dry, intact Internal Medicine: Result - Labs CBC & Chem 7: 02/22/18 05:50 02/22/18 05:50 Labs: Short CBC 02/22/18 Range/Units 05:50 WBC 8.3 (4.3-11.1) K/mcL Hgb 11.3 L (12.9-16.9) g/dL Hct 32.6 L (37.5-50.1) % Plt Count 190 (140-400) K/mcL Neutrophils # 4.7 (1.6-8.9) K/mcL BMP 02/22/18 05:50 Sodium 132 L Potassium 4.5 Chloride 101 Carbon Dioxide 25 BUN 24 H Creatinine 1.15 Glucose 108 H Calcium 9.1 - ABG Interpretation ABG results: PT/INR, D-dimer PT 12.2 Seconds (9.4-12.1) H 01/30/18 05:30 - VTE Documentation of Mechanical Device: Graduated compression elastic hosiery Consult Discharge Plan - Plan Referrals: Venancio Mcclendon MD [Family Provider] - Kenya Francis CNP [Primary Care Provider] -
[2018-02-23] MEDS: *HR* Enoxaparin 40 MG/0.4 ML SYRINGE SQ SCH (06:32)
[2018-02-23] MEDS: Lisinopril 20 MG TABLET PO SCH (10:43)
[2018-02-23] MEDS: Acetaminophen 325 MG TABLET PO PRN (10:44)
[2018-02-23] MEDS: Sennosides 8.6 MG TABLET PO SCH ×2 (10:44→19:52)
[2018-02-23] MEDS: Magnesium Oxide 400 MG TABLET PO SCH (10:44)
[2018-02-23] MEDS: Metoprolol XL (24 HR) Succ 25 MG TAB.ER.24H PO SCH (10:44)
[2018-02-23] MEDS: Cholecalciferol (D-3) 1,000 UNIT TABLET PO SCH (10:44)
--- NOTE | 2018-02-23 12:49 | Internal Med Progress Note ---
Date of Encounter: 02/23/18 Time of Encounter: 12:47 - Assessment and plan (1) Stroke Current Visit: Yes Status: Acute Assessment and plan: No new neurological deficits at this time. Continue PT and OT. Will monitor progress. Follow up with neurologist as scheduled. Qualifiers: CVA mechanism: embolism Precerebral and cerebral artery: unspecified precerebral artery Qualified Code(s): I63.10 - Cerebral infarction due to embolism of unspecified precerebral artery (2) HTN (hypertension) Current Visit: Yes Status: Chronic Assessment and plan: Controlled with current medication. Monitor blood pressure. Qualifiers: Hypertension type: essential hypertension Qualified Code(s): I10 - Essential (primary) hypertension - Time Spent With Patient less than 15 minutes - Subjective Interval history: participating well with therapy. ambulated up a flight of stairs with therapy this am. ambulating with FWW. working on balance and fine motor skills. No new neurological deficits. Denies fever, chills, nausea vomiting or diarrhea. Maintaining appetite and hydration. States bowels last moved yesterday. states he slept well. Denies any new issues at this time. States slept well last night. scheduled for discharge on 02/26 to home. - Constitutional Vitals: Temp Pulse Resp BP Pulse Ox 97.9 F 67 18 138/72 96 02/23/18 09:00 02/23/18 09:00 02/23/18 09:00 02/23/18 09:00 02/23/18 09:00 General appearance: Present: cooperative, A&O X 3, pleasant, no acute distress, answers questions appropriately - Head Head exam: Present: atraumatic, normocephalic - Eye Eye exam: Present: PERRL, conjuntiva pink, sclera anicteric Pupils: Present: PERRL - Neck Neck exam general surgery: Present: supple, trachea midline. Absent: lymphadenopathy - Respiratory Respiratory exam: Present: CTAB. Absent: accessory muscle use, rales, rhonchi, wheezes - Cardiovascular Cardiovascular exam: Present: RRR, +S1, +S2. Absent: diastolic murmur, gallop, rubs, systolic murmur - GI/Abdominal GI/Abdominal exam: Present: normal bowel sounds, soft, no peritoneal signs. Absent: distended, tenderness - Extremities Exam Extremities exam: Present: warm, radial pulses palpable and symmetrical. Absent : calf tenderness, cyanotic, pedal edema Additional comments: strength 4/5 LUE. - Neurological Exam Neurological exam: Present: CN II-XII intact, oriented X3, no focal deficits. Absent: pronater drift, facial droop, speech deficit - Skin Skin exam: Present: dry, intact Internal Medicine: Result - Labs CBC & Chem 7: 02/22/18 05:50 02/22/18 05:50 - ABG Interpretation ABG results: PT/INR, D-dimer PT 12.2 Seconds (9.4-12.1) H 01/30/18 05:30 - VTE Documentation of Mechanical Device: Graduated compression elastic hosiery Consult Discharge Plan - Plan Referrals: Venancio Mcclendon MD [Family Provider] - Kenya Francis CNP [Primary Care Provider] -
[2018-02-24] MEDS: *HR* Enoxaparin 40 MG/0.4 ML SYRINGE SQ SCH (05:29)
[2018-02-24] MEDS: Sennosides 8.6 MG TABLET PO SCH ×2 (09:55→19:06)
[2018-02-24] MEDS: Cholecalciferol (D-3) 1,000 UNIT TABLET PO SCH (09:55)
[2018-02-24] MEDS: Magnesium Oxide 400 MG TABLET PO SCH (09:55)
[2018-02-24] MEDS: Metoprolol XL (24 HR) Succ 25 MG TAB.ER.24H PO SCH (09:55)
[2018-02-24] MEDS: Lisinopril 20 MG TABLET PO SCH (09:55)
--- NOTE | 2018-02-24 12:09 | Internal Med Progress Note ---
Addendum entered and electronically signed by Alverto Meza MD 02/25/18 14:15: I have personally performed a face to face evaluation on this patient. I have r eviewed and agree with the care plan. History and Exam by me shows: The patient was evaluated by me yesterday but the note was not complete. This documentation is being completed today for that reason. He is moving bowels and bladder well. He is pleased with strengthening and in his progress with therapies. Acute issues. Discussed care with other providers and/or nursing. Patient has no complaint of chest discomfort, dyspnea, orthopnea, palpitations, nausea or vomiting, constipation or diarrhea, other changes in bowel habits, difficulty with urination, rash or itching, or other new complaints, except as mentioned above. Review of systems is otherwise negative. Examination: (Except as mentioned above): General: In no apparent distress. Alert and oriented 3. Nondiaphoretic. Head: Atraumatic and normocephalic. Respiratory: No use of accessory muscles. Lungs are clear throughout. Normal airflow. Cardiovascular: Regular rate and rhythm without murmur appreciated. Abdomen: Bowel sounds are normal. No hepatosplenomegaly mass or tenderness appreciated. Obese and therefore difficult to palpate deeply. Patient is examined upright in chair and this also limits exam. Extremities: No cyanosis clubbing or edema. Skin: Warm and non-diaphoretic with no new lesions noted. Original Note: Date of Encounter: 02/24/18 Time of Encounter: 12:07 - Assessment and plan (1) Stroke Current Visit: Yes Status: Acute Assessment and plan: No new neurological deficits at this time. Continue PT and OT. Will monitor progress. Follow up with neurologist as scheduled. Qualifiers: CVA mechanism: embolism Precerebral and cerebral artery: unspecified precerebral artery Qualified Code(s): I63.10 - Cerebral infarction due to embolism of unspecified precerebral artery (2) HTN (hypertension) Current Visit: Yes Status: Chronic Assessment and plan: Controlled with current medication. Monitor blood pressure. Qualifiers: Hypertension type: essential hypertension Qualified Code(s): I10 - Essential (primary) hypertension - Time Spent With Patient less than 15 minutes - Subjective Interval history: participating well with therapy. ambulating with FWW. working on balance and fine motor skills. No new neurological deficits. Denies fever, chills, nausea vomiting or diarrhea. Maintaining appetite and hydration. States bowels last moved yesterday. states he slept well. Denies any new issues at this time. States slept well last night. scheduled for discharge on 02/26 to home. - Constitutional Vitals: Temp Pulse Resp BP Pulse Ox 97.9 F 70 18 142/70 94 02/24/18 07:56 02/24/18 07:56 02/24/18 07:56 02/24/18 07:56 02/24/18 07:56 General appearance: Present: cooperative, A&O X 3, pleasant, no acute distress, answers questions appropriately - Head Head exam: Present: atraumatic, normocephalic - Eye Eye exam: Present: PERRL, conjuntiva pink, sclera anicteric Pupils: Present: PERRL - Neck Neck exam general surgery: Present: supple, trachea midline. Absent: lymphadenopathy - Respiratory Respiratory exam: Present: CTAB. Absent: accessory muscle use, rales, rhonchi, wheezes - Cardiovascular Cardiovascular exam: Present: RRR, +S1, +S2. Absent: diastolic murmur, gallop, rubs, systolic murmur - GI/Abdominal GI/Abdominal exam: Present: normal bowel sounds, soft, no peritoneal signs. Absent: distended, tenderness - Extremities Exam Extremities exam: Present: warm, radial pulses palpable and symmetrical. Absent: calf tenderness, cyanotic, pedal edema Additional comments: strength 5/5 on RUE and RLE, strength 4/5 LUE and LLE. - Neurological Exam Neurological exam: Present: CN II-XII intact, oriented X3, no focal deficits. Absent: pronater drift, facial droop, speech deficit - Skin Skin exam: Present: dry, intact Internal Medicine: Result - Labs CBC & Chem 7: 02/22/18 05:50 02/22/18 05:50 - ABG Interpretation ABG results: PT/INR, D-dimer PT 12.2 Seconds (9.4-12.1) H 01/30/18 05:30 - VTE Documentation of Mechanical Device: Graduated compression elastic hosiery Consult Discharge Plan - Plan Referrals: Venancio Mcclendon MD [Family Provider] - Kenya Francis CNP [Primary Care Provider] -
--- NOTE | 2018-02-24 14:39 | Rehab Psychology Progress Note ---
Date of Encounter: 02/24/18 Time of Encounter: 11:30 Subjective - Patient Report Patient Report: Brief encounter to check on status and mood. Continues to exhibit emotional lability. Excited to go home and looking forward to spend time with family over weekend. No concerns in regard to anxiety or depression. Assessment and Plan - Diagnosis (1) Adjustment disorder with depressed mood
[2018-02-24] MEDS: cloNIDine HCl 0.1 MG TABLET PO PRN (19:19)
[2018-02-25] MEDS: Cholecalciferol (D-3) 1,000 UNIT TABLET PO SCH (09:45)
[2018-02-25] MEDS: Sennosides 8.6 MG TABLET PO SCH ×2 (09:45→21:20)
[2018-02-25] MEDS: Magnesium Oxide 400 MG TABLET PO SCH (09:45)
[2018-02-25] MEDS: Metoprolol XL (24 HR) Succ 25 MG TAB.ER.24H PO SCH (09:45)
[2018-02-25] MEDS: Lisinopril 20 MG TABLET PO SCH (09:45)
[2018-02-25] MEDS ORDERED: Magnesium Oxide 400 MG TABLET PO ONE (11:44)
[2018-02-25] MEDS ORDERED: Sennosides 8.6 MG TABLET PO ONE (11:44)
[2018-02-25] MEDS ORDERED: Lisinopril 20 MG TABLET PO ONE (11:44)
[2018-02-25] MEDS ORDERED: Metoprolol XL (24 HR) Succ 25 MG TAB.ER.24H PO ONE (11:44)
[2018-02-25] MEDS ORDERED: Cholecalciferol (D-3) 1,000 UNIT TABLET PO ONE (11:44)
[2018-02-25] MEDS ORDERED: *HR* Enoxaparin 40 MG/0.4 ML SYRINGE SQ ONE (11:44)
[2018-02-25] MEDS: *HR* Enoxaparin 40 MG/0.4 ML SYRINGE SQ SCH (13:41)
--- NOTE | 2018-02-25 14:18 | Internal Med Progress Note ---
Date of Encounter: 02/25/18 Time of Encounter: 14:16 - Assessment and plan (1) Stroke Current Visit: Yes Status: Acute Assessment and plan: Patient continues to make progress. Plan is to discharge tomorrow with outpatient therapy. Qualifiers: CVA mechanism: embolism Precerebral and cerebral artery: unspecified precerebral artery Qualified Code(s): I63.10 - Cerebral infarction due to embolism of unspecified precerebral artery (2) HTN (hypertension) Current Visit: Yes Status: Chronic Assessment and plan: I do not like elevation of blood pressure last evening. Will follow and no medicine change, yet. Will need close attention as an outpatient to prevent recurrent stroke. Qualifiers: Hypertension type: essential hypertension Qualified Code(s): I10 - Essential (primary) hypertension (3) HLD (hyperlipidemia) Current Visit: No Status: Chronic Assessment and plan: We will continue regimen as current. Qualifiers: Hyperlipidemia type: unspecified Qualified Code(s): E78.5 - Hyperlipidemia, unspecified - Subjective Interval history: Patient without acute problems. He is pleased to be going home tomorrow. He is participating well with therapy. Bowels and bladder are functioning well. Patient has no complaint of chest discomfort, dyspnea, orthopnea, palpitations, nausea or vomiting, constipation or diarrhea, other changes in bowel habits, difficulty with urination, rash or itching, or other new complaints, except as mentioned above. Review of systems is otherwise negative. I discussed management of her care with nursing staff. - Constitutional Vitals: Temp Pulse Resp BP Pulse Ox 97.6 F 65 18 135/73 96 02/25/18 07:00 02/25/18 07:00 02/25/18 07:00 02/25/18 07:00 02/25/18 07:00 Exam: Examination: (Except as mentioned above): General: In no apparent distress. Alert and oriented 3. Nondiaphoretic. Head: Atraumatic and normocephalic. Respiratory: No use of accessory muscles. Lungs are clear throughout. Normal airflow. Cardiovascular: Regular rate and rhythm without murmur appreciated. Abdomen: Bowel sounds are normal. No hepatosplenomegaly mass or tenderness appreciated. Patient is examined upright in chair and this also limits exam. Extremities: No cyanosis clubbing or edema. Skin: Warm and non-diaphoretic with no new lesions noted. Neurologic: Left foot dorsiflexion and left thumb abduction are continuing to improve. Coordination is markedly diminished, however. Internal Medicine: Result - Labs CBC & Chem 7: 02/22/18 05:50 02/22/18 05:50 - ABG Interpretation ABG results: PT/INR, D-dimer PT 12.2 Seconds (9.4-12.1) H 01/30/18 05:30 - VTE Documentation of Mechanical Device: Graduated compression elastic hosiery Consult Discharge Plan - Plan Referrals: Venancio Mcclendon MD [Family Provider] - Kenya Francis CNP [Primary Care Provider] -
[2018-02-26] MEDS: *HR* Enoxaparin 40 MG/0.4 ML SYRINGE SQ SCH (04:48)
[2018-02-26] MEDS: cloNIDine HCl 0.1 MG TABLET PO PRN (04:48)
[2018-02-26 08:30] VITALS: BP 144/61
--- NOTE | 2018-02-26 10:01 | Discharge Summary ---
Addendum entered and electronically signed by Alverto Meza MD 02/26/18 12:40: I have personally performed a face to face evaluation on this patient. I have r eviewed and agree with the care plan. History and Exam by me shows: Patient without complaints and is excited to be going home. He is pleased with his progress and notes that he hopes things will get better. I told him I thought that they would but only time will tell. Bowels and bladder have been functioning well. Discussed care with other providers and/or nursing. Patient has no complaint of chest discomfort, dyspnea, orthopnea, palpitations, nausea or vomiting, constipation or diarrhea, other changes in bowel habits, difficulty with urination, rash or itching, or other new complaints, except as mentioned above. Review of systems is otherwise negative. Examination: (Except as mentioned above): General: In no apparent distress. Alert and oriented 3. Nondiaphoretic. Head: Atraumatic and normocephalic. Respiratory: No use of accessory muscles. Lungs are clear throughout. Normal airflow. Cardiovascular: Regular rate and rhythm without murmur appreciated. Abdomen: Bowel sounds are normal. No hepatosplenomegaly mass or tenderness appreciated. Obese and therefore difficult to palpate deeply. Patient is examined upright in chair and this also limits exam. Extremities: No cyanosis clubbing or edema. Skin: Warm and non-diaphoretic with no new lesions noted. Neurologic: Patient still with weakness at left upper and lower extremity but this is nearly normal at lower to dorsiflexion and 4- to 4/5 when it comes to left thumb abduction. I told him that I was mostly concerned about blood pressure and if his blood pressure was high, to take an extra pill. If it was high and hour later, seek medical attention from primary care or from the emergency room so that he would not have another stroke. I have asked that he have early follow-up with PCP so that his blood pressure can be reassessed. Addendum entered and electronically signed by Agatha Oglesby APN 02/26/18 10:15: Patient discharging to home with status post right CVA. Will order a hinged AFL for left lower extremity. Patient will continue PT and OT as outpatient. Therapy staff already completed home safety visit and is able to do car transfers. Patient to follow up with PCP and one week as blood pressure is still slightly elevated at times. Encourage to check blood pressure and call PCP with elevated readings. To follow up with neurologist as scheduled. Original Note: Orders not resulted at time of discharge: Pending orders 03/01/18 04:00 BMP [Basic Metabolic Panel] MO CBC [Complete Blood Count] [HEME] MO 03/08/18 04:00 BMP [Basic Metabolic Panel] MO CBC [Complete Blood Count] [HEME] MO 03/15/18 04:00 BMP [Basic Metabolic Panel] MO CBC [Complete Blood Count] [HEME] MO 03/22/18 04:00 BMP [Basic Metabolic Panel] MO CBC [Complete Blood Count] [HEME] MO 03/29/18 04:00 BMP [Basic Metabolic Panel] MO CBC [Complete Blood Count] [HEME] MO 04/05/18 04:00 BMP [Basic Metabolic Panel] MO CBC [Complete Blood Count] [HEME] MO 04/12/18 04:00 BMP [Basic Metabolic Panel] MO CBC [Complete Blood Count] [HEME] MO 04/19/18 04:00 BMP [Basic Metabolic Panel] MO CBC [Complete Blood Count] [HEME] MO Date of Encounter: 02/26/18 Time of Encounter: 10:01 - Discharge Diagnosis (1) Stroke Priority: Primary Status: Acute Comments: Continue current medication. No new neurological deficits. Has improved with physical therapy and occupational therapy will continue as outpatient. Follow up with neurologist and PCP. Follow up with PCP and one week. Qualifiers: CVA mechanism: embolism Precerebral and cerebral artery: unspecified precerebral artery Qualified Code(s): I63.10 - Cerebral infarction due to embolism of unspecified precerebral artery (2) HTN (hypertension) Priority: Secondary Status: Chronic Comments: Controlled with current medication. Has been slightly elevated. Will follow up with PCP. Qualifiers: Hypertension type: essential hypertension Qualified Code(s): I10 - Essential (primary) hypertension Hospital course: Mr. Dover is a 67 year old male Discharge discussed with: patient, family, nurse, social work - Time Spent with Patient Total time spent providing and/or coordinating discharge services: Less than 30 minutes - Discharge Medications Home Medications: Cholecalciferol (D-3) [Vitamin D] 1,000 unit PO DAILY 01/26/18 [History] Tresckow-3/Dha/Epa/Fish Oil [Fish Oil 1,000 mg Softgel] 1 cap PO DAILY 01/26/18 [History] Ubidecarenone [Coq10] 50 mg PO DAILY 01/26/18 [History] Acetaminophen [Tylenol] 650 mg PO Q6HR PRN tablet 02/26/18 [Rx] Citalopram [CeleXA] 20 mg PO DAILY #14 tablet 02/26/18 [Rx] Clopidogrel [Plavix] 75 mg PO DAILY #14 tablet 02/26/18 [Rx] Lisinopril [Zestril] 40 mg PO QDPC #14 tablet 02/26/18 [Rx] Magnesium Oxide [Mag-Ox] 400 mg PO DAILY tablet 02/26/18 [Rx] Metoprolol XL (24 HR) Succ [Toprol Xl] 25 mg PO DAILY #14 tab.er.24h 02/26/18 [Rx] Potassium Chloride 20 meq PO DAILY #14 tab.er.prt 02/26/18 [Rx] Simvastatin [Zocor] 40 mg PO HS #14 tablet 02/26/18 [Rx] Allergies/Adverse Reactions: Allergy/AdvReac Type Severity Reaction Status Date / Time No Known Allergies Allergy Verified 01/26/18 13:48 Date of admission: 01/29/18 11:49 Primary care physician: Kenya Francis CNP Consults: 01/29/18 12:07 Consult to Occupational Therapy [CONS] Routine Comment: Evaluate, develop and implement POC Reason for Consult: s/p CVA rehab Does patient have active BEDREST order?: No Is patient medically & hemodynamically stable?: Yes Patient assessed for mobility or mobilized this visit?: Yes Consult to Physical Therapy [CONS] Routine Comment: Evaluate, develop and implement POC Reason for Consult: s/p CVA rehab Does patient have active BEDREST order?: No Is patient medically & hemodynamically stable?: Yes Patient assessed for mobility or mobilized this visit?: Yes Consult to Recreational Therapy [CONS] Routine Comment: Evaluate, develop and implement POC Consult to [employer] [CONS] Routine Reason for SW Consult: discharge planning Consult to Speech Therapy [CONS] Routine Comment: Evaluate, develop and implement POC Reason for Consult: speech impairment Call Completed: Yes 01/29/18 14:55 Consult to Physical Medicine/Rehab [CONS] Routine Reason for Consult: CVA Time Notified: 14:55 Call Completed: No 02/02/18 10:19 Consult to Psychology [CONS] Routine Consulting Provider: Mary Ramsey Reason for Consult: Possible depression; adjustment disorder; possible PBA Call Completed: No Discharging clinician: Alverto Meza Anticipated date of discharge: 02/26/18 - Constitutional Vitals: Temp Pulse Resp BP Pulse Ox 98.1 F 59 18 144/61 96 02/26/18 08:00 02/26/18 08:00 02/26/18 08:00 02/26/18 08:00 02/26/18 08:00 General appearance: Present: cooperative, A&O X 3, pleasant, no acute distress, answers questions appropriately - Head Head exam: Present: atraumatic, normocephalic - Eye Eye exam: Present: PERRL, conjuntiva pink, sclera anicteric Pupils: Present: PERRL - Neck Neck exam general surgery: Present: supple, trachea midline. Absent: lymphadenopathy - Respiratory Respiratory exam: Present: CTAB. Absent: accessory muscle use, rales, rhonchi, wheezes - Cardiovascular Cardiovascular exam: Present: RRR, +S1, +S2. Absent: diastolic murmur, gallop, rubs, systolic murmur - GI/Abdominal GI/Abdominal exam: Present: normal bowel sounds, soft, no peritoneal signs. Absent: distended, tenderness - Extremities Exam Extremities exam: Present: warm, radial pulses palpable and symmetrical. Absent: calf tenderness, cyanotic, pedal edema Additional comments: Left lower extremity left upper extremity strength 4\5. Has gained dysfunction and able to flex and extend foot through ankle. - Neurological Exam Neurological exam: Present: CN II-XII intact, oriented X3, no focal deficits. Absent: pronater drift, facial droop, speech deficit - Skin Skin exam: Present: dry, intact - Patient Status Disposition: Home, Self-Care Condition: Good Functional capacity at discharge: uses cane/walker Overall status at discharge: patient is progressing back to baseline - Discharge Instructions Follow Up With: Venancio Mcclendon MD [Family Provider] - Kenya Francis CNP [Primary Care Provider] - - Diet and Activity Activity: as per physical therapy Diet: low fat, low cholesterol - VTE Documentation of Mechanical Device: Graduated compression elastic hosiery
[2018-02-26] MEDS: Lisinopril 20 MG TABLET PO SCH (10:34)
[2018-02-26] MEDS: Acetaminophen 325 MG TABLET PO PRN (10:35)
[2018-02-26] MEDS: Cholecalciferol (D-3) 1,000 UNIT TABLET PO SCH (10:35)
[2018-02-26] MEDS: Magnesium Oxide 400 MG TABLET PO SCH (10:35)
[2018-02-26] MEDS: Metoprolol XL (24 HR) Succ 25 MG TAB.ER.24H PO SCH (10:35)
[2018-02-26] MEDS: Sennosides 8.6 MG TABLET PO SCH (10:35)
== END 2018-02-26 11:45 | disposition home or self-care (01) | DRG 57 ==
LOC: INPGRE 11:49